=== PATIENT | male | born 1950 | race Caucasian/White ===

== ENCOUNTER 2017-02-26 04:57 | Inpatient (IN) ==
[2017-02-26] MEDS ORDERED: ASPIRIN 325 MG TABLET PO STA (05:29)
[2017-02-26] MEDS ORDERED: ENOXAPARIN 100 MG/ML SYRINGE SUBCUT STA (05:29)
[2017-02-26] MEDS ORDERED: MORPHINE 2 MG/1 ML SYRINGE IV STA (05:29)
[2017-02-26] MEDS ORDERED: ONDANSETRON 4 MG/2 ML VIAL IV STA (05:29)
[2017-02-26] MEDS ORDERED: NITROGLYCERIN 2% OINT 1 INCH/GM PACK TOP STA (05:29)
[2017-02-26] MEDS ORDERED: ALUM/MAG/SIMETH/LIDO VISC 1:1 30 ML BOTTLE PO STA (05:29)
[2017-02-26] MEDS ORDERED: ONDANSETRON 4 MG/2 ML VIAL ONE (05:45)
[2017-02-26] MEDS ORDERED: MORPHINE 2 MG/1 ML SYRINGE ONE (05:45)
[2017-02-26] MEDS ORDERED: ALUM/MAG/SIMETH/LIDO VISC 1:1 30 ML BOTTLE PO ONE (05:45)
[2017-02-26] MEDS ORDERED: NITROGLYCERIN 2% OINT 1 INCH/GM PACK TOP ONE (05:45)
[2017-02-26 05:49] LABS: Basophils # 0.1 10*3/uL (0.0-0.2); Basophils % 0.8 % (0.0-0.8); Eosinophils # 0.3 10*3/uL (0.0-0.87); Eosinophils % 4.3 % (0.00-10.9); Hematocrit 41.1 VOL% (42.0-52.0); Hemoglobin 14.6 GM/DL (14.0-18.0); Immature Granulocytes % 0.3 %; Immature Granulocytes Absolute 0.02 #; Lymphocytes # 1.8 10*3/uL (1.4-4.0); Lymphocytes % 23.4 % (21.2-54.2); Mean Corpuscular HGB Conc 35.5 GM/DL (32-36); Mean Corpuscular Hemoglobin 32 PG (27-34); Mean Corpuscular Volume 89.5 FL (87-102); Mean Platelet Volume 9.3 FL (9.6-12.0); Monocytes # 1.1 10*3/uL (0.11-0.8); Monocytes % 14.2 % (1.7-12.7); Neutrophils # 4.4 10*3/uL (1.4-7.4); Platelet Count 296 T/CUMM (130-400); Red Blood Count 4.59 MC/CUMM (3.8-5.5); Red Cell Distribution Width 12.9 % (9.3-17.3); White Blood Count 7.7 T/CUMM (4-12)
[2017-02-26 05:58] LABS: INR 0.9; PT Patient Result 9.9 SECS
[2017-02-26 06:31] LABS: Albumin 3.9 G/DL (3.4-5.0); Bilirubin,Total 0.8 MG/DL (0.2-1.0); Calcium 9.2 MG/DL (8.5-10.1); Magnesium 2.2 MG/DL (1.8-2.4); Osmolality,Calculated 282.4 MOS/KG (273-304); Potassium 3.7 MMOL/L (3.5-5.1); Total Protein 6.8 G/DL (6.4-8.3)
[2017-02-26] MEDS ORDERED: ENOXAPARIN 80 MG/0.8 ML SYRINGE SUBCUT ONE (09:49)
[2017-02-26] MEDS ORDERED: NITROGLYCERIN SL 0.4 MG TABLET SL PRN (12:40)
[2017-02-26] MEDS ORDERED: methylPREDNISolone SOD SUC 125 MG/2 ML VIAL IV ONE (13:52)
[2017-02-26] MEDS ORDERED: FAMOTIDINE 20 MG/2 ML VIAL IV ONE (13:54)
[2017-02-26] MEDS ORDERED: diphenhydrAMINE CAP 25 MG CAPSULE PO ONE (13:57)
[2017-02-26] MEDS ORDERED: DIAZEPAM 5 MG TABLET PO ONE (13:57)
[2017-02-26] MEDS ORDERED: MAGNESIUM SULF RIDER 2 GM in PREMIX 1 EACH IV PRN (13:57)
[2017-02-26] MEDS ORDERED: POTASSIUM CHLORIDE RIDER 10 MEQ in PREMIX 1 EACH IV PRN (13:57)
[2017-02-26] MEDS ORDERED: SODIUM CHLORIDE 0.9% 1,000 ML IV SCH (14:00)
[2017-02-26] MEDS ORDERED: LIDOCAINE 1% 20 ML VIAL ONE (14:33)
[2017-02-26] MEDS ORDERED: MEPERIDINE 25 MG/1 ML VIAL ONE (14:35)
[2017-02-26] MEDS ORDERED: MIDAZOLAM 2 MG/2 ML VIAL ONE (14:36)
[2017-02-26] MEDS: VENLAFAXINE 75 MG TABLET PO SCH ×2 (16:41→22:38)
[2017-02-26] MEDS: METOPROLOL TARTRATE 25 MG TABLET PO SCH ×2 (16:41→21:01)
[2017-02-26 18:05] LABS: Troponin I Only 0.084 NG/ML (0.00-0.045)
[2017-02-26] MEDS: predniSONE 50 MG TABLET PO SCH (18:36)
[2017-02-26] MEDS: ASPIRIN EC 81 MG TABLET PO SCH (20:59)
[2017-02-26] MEDS ORDERED: PRASUGREL 10 MG TABLET PO SCH (21:00)
[2017-02-26] MEDS: PITAVASTATIN 2 MG TABLET PO SCH (21:00)
[2017-02-26] MEDS: FAMOTIDINE 20 MG TABLET PO SCH (21:01)
[2017-02-26] MEDS: LISINOPRIL 2.5 MG TABLET PO SCH (21:01)
[2017-02-26] MEDS: PANTOPRAZOLE 40 MG TABLET PO SCH (21:01)
[2017-02-26] MEDS: MONTELUKAST 10 MG TABLET PO SCH (21:01)
[2017-02-26 22:14] LABS: Troponin I Only 0.054 NG/ML (0.00-0.045)
[2017-02-26] MEDS: FLUTICASONE 50 MCG NASAL SPRAY 16 GM BOTTLE BOTH NARES SCH (22:38)
[2017-02-27 05:20] LABS: Basophils % 0.1 % (0.0-0.8); Hematocrit 40.2 VOL% (42.0-52.0); Immature Granulocytes % 0.4 %; Immature Granulocytes Absolute 0.05 #; Lymphocytes # 0.9 10*3/uL (1.4-4.0); Lymphocytes % 6.6 % (21.2-54.2); Mean Corpuscular HGB Conc 34.8 GM/DL (32-36); Mean Corpuscular Hemoglobin 31 PG (27-34); Mean Corpuscular Volume 89.7 FL (87-102); Mean Platelet Volume 9.5 FL (9.6-12.0); Monocytes # 0.1 10*3/uL (0.11-0.8); Monocytes % 0.8 % (1.7-12.7); Neutrophils # 12.8 10*3/uL (1.4-7.4); Neutrophils % 92.1 % (38.7-73.9); Platelet Count 280 T/CUMM (130-400); Red Blood Count 4.48 MC/CUMM (3.8-5.5); Red Cell Distribution Width 12.4 % (9.3-17.3); White Blood Count 13.9 T/CUMM (4-12)
[2017-02-27 05:45] LABS: Band Neutrophils 1 % (0-10); Lymphocytes 8 % (20-55); Segmented Neutrophils 90 % (50-85); Total Cells Counted 100
[2017-02-27 05:48] LABS: Hypochromasia 1+; Platelet Estimate Normal
[2017-02-27 05:58] LABS: Calcium 8.6 MG/DL (8.5-10.1); Magnesium 2.3 MG/DL (1.8-2.4); Osmolality,Calculated 283.5 MOS/KG (273-304); Potassium 4.6 MMOL/L (3.5-5.1)
[2017-02-27 06:00] LABS: Calcium 8.9 MG/DL (8.5-10.1); Osmolality,Calculated 283.5 MOS/KG (273-304); Potassium 4.5 MMOL/L (3.5-5.1)
[2017-02-27] MEDS ORDERED: DEXTROSE 50% 25 GM/50 ML VIAL IV PRN (06:23)
[2017-02-27] MEDS ORDERED: GLUCAGON 1 MG VIAL IM PRN (06:23)
[2017-02-27] MEDS ORDERED: SODIUM CHLORIDE 0.9% 1,000 ML IV SCH (06:30)
[2017-02-27] MEDS ORDERED: CEFUROXIME INJ 1,500 MG in SYRINGE 1 EACH IV ONE (06:31)
[2017-02-27 06:45] LABS: ABG Base Excess 1.2 MMOL/L (-2.5-2.5); ABG HCO3 25.5 MMOL/L (20-26); ABG Oxygen Saturation 96.5 % (95-100); ABG PCO2 39.2 MM HG (35-48); ABG PH 7.423 (7.35-7.45); ABG TCO2 22.2 MMOL/L (23-27)
[2017-02-27 08:09] LABS: Albumin 3.5 G/DL (3.4-5.0); Bilirubin,Total 0.4 MG/DL (0.2-1.0); Calcium 8.6 MG/DL (8.5-10.1); Osmolality,Calculated 279.8 MOS/KG (273-304); Potassium 4.6 MMOL/L (3.5-5.1); Total Protein 6.6 G/DL (6.4-8.3)
[2017-02-27 08:18] LABS: Hematocrit 38.8 VOL% (42.0-52.0); Hemoglobin 13.6 GM/DL (14.0-18.0); Immature Granulocytes % 0.4 %; Immature Granulocytes Absolute 0.06 #; Lymphocytes # 0.9 10*3/uL (1.4-4.0); Lymphocytes % 5.9 % (21.2-54.2); Mean Corpuscular HGB Conc 35.1 GM/DL (32-36); Mean Corpuscular Hemoglobin 31 PG (27-34); Mean Corpuscular Volume 89.2 FL (87-102); Mean Platelet Volume 9.3 FL (9.6-12.0); Monocytes # 0.3 10*3/uL (0.11-0.8); Monocytes % 2.1 % (1.7-12.7); Neutrophils # 14.1 10*3/uL (1.4-7.4); Neutrophils % 91.6 % (38.7-73.9); Platelet Count 269 T/CUMM (130-400); Red Blood Count 4.35 MC/CUMM (3.8-5.5); Red Cell Distribution Width 12.4 % (9.3-17.3); White Blood Count 15.4 T/CUMM (4-12)
[2017-02-27] MEDS ORDERED: CHLORHEXIDINE 4% SOLN 118 ML BOTTLE TOP SCH (09:00)
[2017-02-27] MEDS: VENLAFAXINE 75 MG TABLET PO SCH ×2 (09:18→22:08)
[2017-02-27] MEDS: predniSONE 50 MG TABLET PO SCH (09:18)
[2017-02-27] MEDS: FAMOTIDINE 20 MG TABLET PO SCH ×2 (09:19→22:09)
[2017-02-27] MEDS: CHLORHEXIDINE 0.12% ORAL RINSE 60 ML BOTTLE SWISH/SPIT SCH ×2 (09:19→22:21)
[2017-02-27] MEDS: METOPROLOL TARTRATE 25 MG TABLET PO SCH ×2 (09:19→22:09)
[2017-02-27] MEDS: FLUTICASONE 50 MCG NASAL SPRAY 16 GM BOTTLE BOTH NARES SCH ×2 (09:20→22:22)
[2017-02-27 09:27] LABS: Band Neutrophils 1 % (0-10); Hypochromasia Slight; Lymphocytes 3 % (20-55); Microcytosis 1+; Platelet Estimate Adequate; Segmented Neutrophils 94 % (50-85); Total Cells Counted 100
[2017-02-27] MEDS: CLORAZEPATE 3.75 MG TABLET PO SCH ×3 (13:16→22:13)
[2017-02-27] MEDS: CHLORHEXIDINE 4% SOLN 118 ML BOTTLE TOP SCH ×2 (15:38→22:21)
[2017-02-27] MEDS ORDERED: ENOXAPARIN 40 MG/0.4 ML SYRINGE SUBCUT ONE (18:48)
[2017-02-27] MEDS: ASPIRIN EC 81 MG TABLET PO SCH (22:08)
[2017-02-27] MEDS: PITAVASTATIN 2 MG TABLET PO SCH (22:08)
[2017-02-27] MEDS: LISINOPRIL 2.5 MG TABLET PO SCH (22:08)
[2017-02-27] MEDS: MONTELUKAST 10 MG TABLET PO SCH (22:09)
[2017-02-27] MEDS: PANTOPRAZOLE 40 MG TABLET PO SCH (22:09)
[2017-02-28] MEDS ORDERED: PAPAVERINE 60 MG/2 ML VIAL ONE ×3 (04:35→18:22)
[2017-02-28] MEDS ORDERED: VANCOMYCIN 1,000 MG VIAL ONE ×2 (04:35→19:01)
[2017-02-28] MEDS ORDERED: CEFUROXIME INJ 1,500 MG in SYRINGE 1 EACH IV ONE (05:00)
[2017-02-28] MEDS ORDERED: PANTOPRAZOLE 40 MG TABLET PO ONE (05:30)
[2017-02-28] MEDS ORDERED: LORazepam 1 MG TABLET PO ONE (05:30)
[2017-02-28] MEDS ORDERED: HEPARIN/NACL 0.9% 2 UNITS/ML 500 ML IV ONE (05:33)
[2017-02-28] MEDS ORDERED: PHENYLEPHRINE DRIP 20 MG/250 ML PREMIX IV ONE (05:33)
[2017-02-28] MEDS ORDERED: CALCIUM CHLORIDE 1,000 MG/10 ML VIAL IV ONE (05:33)
[2017-02-28] MEDS ORDERED: SUFentanil 250 MCG/5 ML AMP ONE ×2 (05:33→21:17)
[2017-02-28] MEDS ORDERED: NITROGLYCERIN DRIP 50 MG/250 ML BOTTLE IV ONE (05:34)
[2017-02-28] MEDS ORDERED: ePHEDrine 50 MG/ML AMP ONE (05:34)
[2017-02-28] MEDS ORDERED: MIDAZOLAM 10 MG/2 ML VIAL ONE (05:34)
[2017-02-28] MEDS ORDERED: VECURONIUM 10 MG VIAL IV ONE ×2 (05:34→21:17)
[2017-02-28] MEDS ORDERED: TRANEXAMIC ACID 1,000 MG/10 ML VIAL IV ONE (05:34)
[2017-02-28] MEDS ORDERED: ETOMIDATE 20 MG/10 ML VIAL IV ONE (05:35)
[2017-02-28 05:53] LABS: Basophils % 0.1 % (0.0-0.8); Hematocrit 37.6 VOL% (42.0-52.0); Hemoglobin 13.2 GM/DL (14.0-18.0); Immature Granulocytes % 0.5 %; Immature Granulocytes Absolute 0.09 #; Lymphocytes # 1.5 10*3/uL (1.4-4.0); Mean Corpuscular HGB Conc 35.1 GM/DL (32-36); Mean Corpuscular Hemoglobin 31 PG (27-34); Mean Corpuscular Volume 88.7 FL (87-102); Mean Platelet Volume 9.6 FL (9.6-12.0); Monocytes # 1.3 10*3/uL (0.11-0.8); Monocytes % 7.3 % (1.7-12.7); Neutrophils # 14.1 10*3/uL (1.4-7.4); Neutrophils % 83.1 % (38.7-73.9); Platelet Count 259 T/CUMM (130-400); Red Blood Count 4.24 MC/CUMM (3.8-5.5); Red Cell Distribution Width 12.6 % (9.3-17.3)
[2017-02-28] MEDS: METOPROLOL TARTRATE 25 MG TABLET PO SCH ×2 (06:05→16:13)
[2017-02-28] MEDS: CHLORHEXIDINE 4% SOLN 118 ML BOTTLE TOP SCH ×2 (06:07→16:13)
[2017-02-28 06:15] LABS: Calcium 8.5 MG/DL (8.5-10.1); Osmolality,Calculated 284.5 MOS/KG (273-304); Potassium 4.2 MMOL/L (3.5-5.1)
[2017-02-28] MEDS ORDERED: SODIUM CHLORIDE 0.9% 1,000 ML IV SCH (06:30)
[2017-02-28 07:41] LABS: ABG Base Excess 0.8 MMOL/L (-2.5-2.5); ABG HCO3 25.2 MMOL/L (20-26); ABG PCO2 36.4 MM HG (35-48); ABG PH 7.439 (7.35-7.45); ABG TCO2 21.7 MMOL/L (23-27); Glucose Heart Surgery 116 MG/DL (74-106); Hematocrit Heart Surgery 37.5 PERCENT (42-52); Hemoglobin Heart Surgery 12.2 G/DL (14.0-18.0); Ionized Calcium Arterial 1.14 MMOL/L (1.21-1.46); PCO2 Patient Temp Arterial 36.4 MMHG; PH Patient Temp Arterial 7.439; Patient Temperature 37 CELCIUS; Potassium Heart/CVR 3.8 MMOL/L (3.5-5.1); Sodium Heart/CVR 139 MMOL/L (135-145)
[2017-02-28 07:59] LABS: Apearance,Urine CLEAR (Clear); Bacteria,Urine Occasional /HPF (Few); Bilirubin,Urine Negative (Negative); Blood, Urine Small mg/dL (Negative); Glucose,Urine (UA) Negative (Negative); Ketones,Urine Negative (Negative); Mucus,Urine Occasional /LPF (Occasional); Nitrite,Urine Negative (Negative); Protein,Urine Negative; RBC,Urine <1 /HPF (0-4); Urine Color Yellow (Yellow); Urine Specific Gravity 1.012 (1.001-1.035); Urine Urobilinogen < 2.0 EU/DL (0.2-1.0); WBC,Urine 2 /HPF (0-6)
[2017-02-28 09:11] LABS: Hemoglobin Heart Surgery 8.7 G/DL (14.0-18.0); PCO2 Patient Temp Venous 35.7 MM HG; PH Patient Temp Venous 7.486; PO2 Patient Temp Venous 33.1 MM HG; Potassium Heart/CVR 4.2 MMOL/L (3.5-5.1); VBG Base Excess 2.8 MEQ/L (0-4); VBG HCO3 26.9 MEQ/L (24-28); VBG Oxygen Saturation 78.5 %; VBG PH 7.456; VBG PO2 38.1 MMHG (17-40)
[2017-02-28 09:42] LABS: Hematocrit Heart Surgery 26.7 PERCENT (42-52); Hemoglobin Heart Surgery 8.6 G/DL (14.0-18.0); PCO2 Patient Temp Venous 38.3 MM HG; PH Patient Temp Venous 7.461; PO2 Patient Temp Venous 48.5 MM HG; Potassium Heart/CVR 4.3 MMOL/L (3.5-5.1); VBG Base Excess 3.4 MEQ/L (0-4); VBG HCO3 27.3 MEQ/L (24-28); VBG Oxygen Saturation 85.1 %; VBG PCO2 38.3 MMHG (41-51); VBG PH 7.461; VBG PO2 48.5 MMHG (17-40)
[2017-02-28] MEDS ORDERED: CALCIUM CHLORIDE 1,000 MG/10 ML SYRINGE IV ONE (09:50)
[2017-02-28] MEDS ORDERED: NITROPRUSSIDE 50 MG/2 ML VIAL ONE (09:50)
[2017-02-28] MEDS ORDERED: POTASSIUM CHLORIDE RIDER 100 ML IV ONE (09:50)
[2017-02-28] MEDS ORDERED: PHENYLEPHRINE DRIP 40 MG/250 ML PREMIX IV ONE (09:50)
[2017-02-28] MEDS ORDERED: PROTAMINE SULFATE 250 MG/25 ML VIAL IV ONE (10:22)
[2017-02-28] MEDS ORDERED: ALBUMIN 25% 25 GM/100 ML VIAL IV ONE (10:22)
[2017-02-28] MEDS ORDERED: DEXTROSE 5% KCL 20 MEQ 20 MEQ/1,000 ML BAG IV ONE (10:22)
[2017-02-28] MEDS ORDERED: SODIUM BICARBONATE 50 MEQ/50 ML SYRINGE IV ONE (10:22)
[2017-02-28] MEDS ORDERED: MANNITOL 12.5 GM/50 ML VIAL IV ONE (10:23)
[2017-02-28] MEDS ORDERED: FUROSEMIDE 20 MG/2 ML VIAL ONE (10:23)
[2017-02-28] MEDS ORDERED: methylPREDNISolone SOD SUC 1,000 MG/8 ML VIAL ONE (10:23)
[2017-02-28] MEDS ORDERED: HEPARIN 10,000 UNIT/10 ML VIAL ONE (10:23)
[2017-02-28] MEDS ORDERED: MAGNESIUM SULFATE 1 GM/2 ML VIAL ONE (10:23)
[2017-02-28] MEDS ORDERED: PROTAMINE SULFATE 50 MG/5 ML VIAL IV ONE ×5 (10:23→23:30)
[2017-02-28 10:38] LABS: ABG Base Excess 2.6 MMOL/L (-2.5-2.5); ABG HCO3 26.8 MMOL/L (20-26); ABG PCO2 33.7 MM HG (35-48); ABG PH 7.491 (7.35-7.45); ABG TCO2 23.9 MMOL/L (23-27); Glucose Heart Surgery 247 MG/DL (74-106); Hematocrit Heart Surgery 25.7 PERCENT (42-52); Hemoglobin Heart Surgery 8.3 G/DL (14.0-18.0); PCO2 Patient Temp Arterial 33.7 MMHG; PH Patient Temp Arterial 7.491; Patient Temperature 37 CELCIUS; Potassium Heart/CVR 3.9 MMOL/L (3.5-5.1); Sodium Heart/CVR 133 MMOL/L (135-145)
[2017-02-28] MEDS: SODIUM CHLORIDE 0.45% 1,000 ML IV SCH ×2 (11:15)
[2017-02-28] MEDS: PHENYLEPHRINE DRIP 40 MG/250 ML PREMIX IV PRN (11:15)
[2017-02-28] MEDS ORDERED: SODIUM CHLORIDE 0.9% 100 ML IV ONE (11:30)
[2017-02-28] MEDS ORDERED: SEVOFLURANE 1 UNIT/15 MINUTE INH ONE ×2 (11:30→21:20)
[2017-02-28] MEDS ORDERED: SODIUM CHLORIDE 0.9% 1,000 ML IV ONE ×2 (11:30→21:17)
[2017-02-28] MEDS ORDERED: LACTATED RINGERS 1,000 ML IV ONE (11:30)
[2017-02-28] MEDS ORDERED: LACTATED RINGERS 250 ML IV PRN (11:37)
[2017-02-28] MEDS ORDERED: CALCIUM CHLORIDE 1,000 MG/10 ML SYRINGE IV PRN (11:37)
[2017-02-28] MEDS ORDERED: INSULIN REGULAR 100 UNIT/ML IV PRN (11:37)
[2017-02-28] MEDS ORDERED: NITROPRUSSIDE 100 MG in DEXTROSE 5% 250 ML IV PRN (11:37)
[2017-02-28] MEDS ORDERED: MAGNESIUM SULF RIDER 2 GM in PREMIX 1 EACH IV PRN (11:37)
[2017-02-28] MEDS ORDERED: VECURONIUM 10 MG VIAL IV PRN ×2 (11:37)
[2017-02-28] MEDS ORDERED: INSULIN REGULAR 100 UNIT/ML IV ONE (11:37)
[2017-02-28] MEDS ORDERED: DEXTROSE 50% 25 GM/50 ML VIAL IV PRN ×2 (11:37)
[2017-02-28] MEDS ORDERED: KETOROLAC 30 MG/1 ML VIAL IV SCH (11:37)
[2017-02-28] MEDS ORDERED: MAGNESIUM SULF RIDER 4 GM in PREMIX 1 EACH IV PRN (11:37)
[2017-02-28] MEDS ORDERED: ONDANSETRON 4 MG/2 ML VIAL IV PRN (11:37)
[2017-02-28] MEDS ORDERED: ACETAMINOPHEN 650 MG SUPP RECTAL PRN (11:37)
[2017-02-28] MEDS ORDERED: POTASSIUM CHLORIDE RIDER 10 MEQ in PREMIX 1 EACH IV PRN (11:37)
[2017-02-28] MEDS ORDERED: POTASSIUM CHLORIDE RIDER 20 MEQ in PREMIX 1 EACH IV PRN (11:37)
[2017-02-28] MEDS ORDERED: MIDAZOLAM 2 MG/2 ML VIAL IV PRN (11:37)
[2017-02-28] MEDS ORDERED: INSULIN REGULAR DRIP 100 ML IV SCH (11:37)
[2017-02-28 11:41] LABS: ABG Base Excess 2.9 MMOL/L (-2.5-2.5); ABG Oxygen Saturation 99.6 % (95-100); ABG PCO2 39.1 MM HG (35-48); ABG PH 7.448 (7.35-7.45); ABG TCO2 25.1 MMOL/L (23-27); Glucose Heart Surgery 210 MG/DL (74-106); Hematocrit Heart Surgery 25.5 PERCENT (42-52); Hemoglobin Heart Surgery 8.2 G/DL (14.0-18.0); Potassium Heart/CVR 4.5 MMOL/L (3.5-5.1)
[2017-02-28 11:46] LABS: Basophils % 0.1 % (0.0-0.8); Eosinophils % 0.1 % (0.00-10.9); Hematocrit 23.6 VOL% (42.0-52.0); Immature Granulocytes Absolute 0.17 #; Lymphocytes # 0.9 10*3/uL (1.4-4.0); Lymphocytes % 5.3 % (21.2-54.2); Mean Corpuscular HGB Conc 35.2 GM/DL (32-36); Mean Corpuscular Hemoglobin 31 PG (27-34); Mean Corpuscular Volume 89.1 FL (87-102); Mean Platelet Volume 9.7 FL (9.6-12.0); Monocytes # 0.8 10*3/uL (0.11-0.8); Monocytes % 4.7 % (1.7-12.7); Neutrophils # 15.4 10*3/uL (1.4-7.4); Neutrophils % 88.8 % (38.7-73.9); Red Cell Distribution Width 12.6 % (9.3-17.3); White Blood Count 17.3 T/CUMM (4-12)
[2017-02-28 11:54] LABS: Hemoglobin 8.3 GM/DL (14.0-18.0); Red Blood Count 2.65 MC/CUMM (3.8-5.5)
[2017-02-28 11:55] LABS: Platelet Count 215 T/CUMM (130-400)
[2017-02-28 11:59] LABS: INR 1.2; PT Patient Result 12.9 SECS; Partial Thromboplastin Time 26.6 SECS (0-40)
[2017-02-28] MEDS: ALBUMIN 5% 12.5 GM in PREMIX 1 EACH IV PRN ×3 (12:00→15:30)
[2017-02-28] MEDS: LACTATED RINGERS 1,000 ML IV PRN ×5 (12:00→23:00)
[2017-02-28 12:24] LABS: CKMB % 7.5 %
[2017-02-28 12:28] LABS: Troponin I Only 6.16 NG/ML (0.00-0.045)
[2017-02-28 12:53] LABS: Bilirubin,Total 0.8 MG/DL (0.2-1.0); Calcium 9.3 MG/DL (8.5-10.1); Magnesium 2.6 MG/DL (1.8-2.4); Osmolality,Calculated 284.8 MOS/KG (273-304); Potassium 4.7 MMOL/L (3.5-5.1)
[2017-02-28] MEDS: MIDAZOLAM 10 MG/2 ML VIAL IV PRN ×3 (13:00→18:00)
[2017-02-28 13:58] LABS: ABG Base Excess 1.6 MMOL/L (-2.5-2.5); ABG HCO3 25.8 MMOL/L (20-26); ABG Oxygen Saturation 98.1 % (95-100); ABG PCO2 41.7 MM HG (35-48); ABG PO2 97.1 MM HG (80-95); ABG TCO2 23.9 MMOL/L (23-27); Glucose Heart Surgery 169 MG/DL (74-106); Hematocrit Heart Surgery 31.5 PERCENT (42-52); Hemoglobin Heart Surgery 10.2 G/DL (14.0-18.0)
[2017-02-28 15:48] LABS: ABG Base Excess 3.9 MMOL/L (-2.5-2.5); ABG PCO2 40.8 MM HG (35-48); ABG PH 7.448 (7.35-7.45); ABG TCO2 25.9 MMOL/L (23-27); Glucose Heart Surgery 127 MG/DL (74-106); Hematocrit Heart Surgery 28.5 PERCENT (42-52); Hemoglobin Heart Surgery 9.2 G/DL (14.0-18.0); Potassium Heart/CVR 4.3 MMOL/L (3.5-5.1)
[2017-02-28] MEDS: CLORAZEPATE 3.75 MG TABLET PO SCH (16:12)
[2017-02-28] MEDS: FLUTICASONE 50 MCG NASAL SPRAY 16 GM BOTTLE BOTH NARES SCH (16:13)
[2017-02-28] MEDS: FAMOTIDINE 20 MG TABLET PO SCH (16:13)
[2017-02-28] MEDS: CHLORHEXIDINE 0.12% ORAL RINSE 60 ML BOTTLE SWISH/SPIT SCH (16:13)
[2017-02-28] MEDS: VENLAFAXINE 75 MG TABLET PO SCH (16:14)
[2017-02-28 17:52] LABS: ABG Base Excess 2.2 MMOL/L (-2.5-2.5); ABG HCO3 26.4 MMOL/L (20-26); ABG Oxygen Saturation 96.6 % (95-100); ABG PCO2 40.6 MM HG (35-48); ABG PH 7.426 (7.35-7.45); ABG PO2 78.5 MM HG (80-95); ABG TCO2 24.7 MMOL/L (23-27); Glucose Heart Surgery 120 MG/DL (74-106); Hematocrit Heart Surgery 26.3 PERCENT (42-52); Hemoglobin Heart Surgery 8.5 G/DL (14.0-18.0); Potassium Heart/CVR 4.3 MMOL/L (3.5-5.1)
[2017-02-28] MEDS ORDERED: VANCOMYCIN INJ 1,000 MG in SODIUM CHLORIDE 0.9% 250 ML IV ONE (20:33)
[2017-02-28 20:41] LABS: Hematocrit 22.7 VOL% (42.0-52.0); Immature Granulocytes % 0.4 %; Immature Granulocytes Absolute 0.05 #; Lymphocytes # 0.3 10*3/uL (1.4-4.0); Mean Corpuscular HGB Conc 35.2 GM/DL (32-36); Mean Corpuscular Hemoglobin 31 PG (27-34); Mean Corpuscular Volume 87.3 FL (87-102); Mean Platelet Volume 9.9 FL (9.6-12.0); Monocytes # 0.8 10*3/uL (0.11-0.8); Monocytes % 6.6 % (1.7-12.7); Neutrophils # 10.2 10*3/uL (1.4-7.4); Platelet Count 117 T/CUMM (130-400); Red Cell Distribution Width 13.2 % (9.3-17.3); White Blood Count 11.3 T/CUMM (4-12)
[2017-02-28 20:42] LABS: ABG HCO3 25.4 MMOL/L (20-26); ABG Oxygen Saturation 99.2 % (95-100); ABG PCO2 38.7 MM HG (35-48); ABG PH 7.425 (7.35-7.45); ABG TCO2 23.7 MMOL/L (23-27); Glucose Heart Surgery 160 MG/DL (74-106); Hematocrit Heart Surgery 24.9 PERCENT (42-52); Potassium Heart/CVR 4.1 MMOL/L (3.5-5.1)
[2017-02-28 20:51] LABS: INR 1.2; PT Patient Result 12.7 SECS
[2017-02-28 21:11] LABS: Albumin 2.8 G/DL (3.4-5.0); Bilirubin,Direct 0.42 MG/DL (0.0-0.20); Bilirubin,Total 1.3 MG/DL (0.2-1.0); CKMB % 4.6 %; Osmolality,Calculated 290.3 MOS/KG (273-304); Potassium 4.3 MMOL/L (3.5-5.1); Total Protein 4.1 G/DL (6.4-8.3)
[2017-02-28 21:14] LABS: Troponin I Only 6.07 NG/ML (0.00-0.045)
[2017-02-28] MEDS ORDERED: MIDAZOLAM 2 MG/2 ML VIAL ONE (21:16)
[2017-02-28] MEDS ORDERED: SODIUM CHLORIDE 0.9% 250 ML IV ONE (21:17)
[2017-02-28] MEDS ORDERED: DESMOPRESSIN INJ 20 MCG in SODIUM CHLORIDE 0.9% 50 ML IV ONE (21:30)
[2017-02-28] MEDS: KETOROLAC 30 MG/1 ML VIAL IV SCH (21:43)
[2017-02-28] MEDS: CEFUROXIME INJ 1,500 MG in SYRINGE 1 EACH IV SCH ×2 (21:47→23:17)
[2017-02-28 22:17] LABS: Lymphocytes 2 % (20-55); Segmented Neutrophils 95 % (50-85); Total Cells Counted 100
[2017-02-28 22:18] LABS: Macrocytosis Slight; Platelet Estimate Decreased; Polychromasia Few
[2017-02-28 22:20] LABS: ABG Base Excess -0.3 MMOL/L (-2.5-2.5); ABG HCO3 24.2 MMOL/L (20-26); ABG Oxygen Saturation 99.3 % (95-100); ABG PH 7.351 (7.35-7.45); ABG TCO2 23.5 MMOL/L (23-27); Glucose Heart Surgery 196 MG/DL (74-106); Hematocrit Heart Surgery 29.2 PERCENT (42-52); Hemoglobin Heart Surgery 9.4 G/DL (14.0-18.0); Potassium Heart/CVR 4.6 MMOL/L (3.5-5.1)
[2017-02-28 23:41] LABS: ABG Base Excess 1.6 MMOL/L (-2.5-2.5); ABG HCO3 25.8 MMOL/L (20-26); ABG Oxygen Saturation 98.4 % (95-100); ABG PCO2 41.2 MM HG (35-48); ABG PH 7.412 (7.35-7.45); ABG PO2 97.5 MM HG (80-95); ABG TCO2 24.3 MMOL/L (23-27); Glucose Heart Surgery 189 MG/DL (74-106); Hematocrit Heart Surgery 26.4 PERCENT (42-52); Hemoglobin Heart Surgery 8.5 G/DL (14.0-18.0); Potassium Heart/CVR 4.3 MMOL/L (3.5-5.1)
[2017-03-01] MEDS: CHLORHEXIDINE 0.12% ORAL RINSE 60 ML BOTTLE SWISH/SPIT SCH ×3 (00:35→21:48)
[2017-03-01] MEDS: MORPHINE 2 MG/1 ML SYRINGE IV PRN ×3 (00:35→23:06)
[2017-03-01] MEDS: KETOROLAC 30 MG/1 ML VIAL IV SCH ×5 (01:22→21:47)
[2017-03-01] MEDS: MORPHINE 10 MG/1 ML VIAL IV PRN ×2 (01:29→02:59)
[2017-03-01] MEDS ORDERED: FUROSEMIDE 40 MG/4 ML VIAL IV ONE ×2 (03:00→14:57)
[2017-03-01] MEDS: ALBUMIN 5% 12.5 GM in PREMIX 1 EACH IV PRN ×3 (03:49→17:13)
[2017-03-01 04:24] LABS: ABG Base Excess 1.1 MMOL/L (-2.5-2.5); ABG HCO3 25.4 MMOL/L (20-26); ABG Oxygen Saturation 97.2 % (95-100); ABG PCO2 47.7 MM HG (35-48); ABG PH 7.361 (7.35-7.45); ABG TCO2 24.5 MMOL/L (23-27); Glucose Heart Surgery 144 MG/DL (74-106); Hematocrit Heart Surgery 32.3 PERCENT (42-52); Hemoglobin Heart Surgery 10.4 G/DL (14.0-18.0)
[2017-03-01 04:28] LABS: Hemoglobin 10.5 GM/DL (14.0-18.0); Immature Granulocytes % 0.4 %; Immature Granulocytes Absolute 0.04 #; Lymphocytes # 0.7 10*3/uL (1.4-4.0); Lymphocytes % 6.4 % (21.2-54.2); Mean Corpuscular HGB Conc 36.2 GM/DL (32-36); Mean Corpuscular Hemoglobin 32 PG (27-34); Mean Corpuscular Volume 87.1 FL (87-102); Mean Platelet Volume 10.5 FL (9.6-12.0); Monocytes # 1.3 10*3/uL (0.11-0.8); Neutrophils # 8.5 10*3/uL (1.4-7.4); Neutrophils % 81.2 % (38.7-73.9); Platelet Count 115 T/CUMM (130-400); Red Blood Count 3.33 MC/CUMM (3.8-5.5); Red Cell Distribution Width 13.4 % (9.3-17.3); White Blood Count 10.4 T/CUMM (4-12)
[2017-03-01 04:51] LABS: INR 1.1; PT Patient Result 11.6 SECS; Partial Thromboplastin Time 27.1 SECS (0-40)
[2017-03-01 05:08] LABS: Albumin 3.1 G/DL (3.4-5.0); Bilirubin,Direct 0.3 MG/DL (0.0-0.20); Bilirubin,Total 1.4 MG/DL (0.2-1.0); Calcium 7.3 MG/DL (8.5-10.1); Osmolality,Calculated 288.3 MOS/KG (273-304); Potassium 4.1 MMOL/L (3.5-5.1); Total Protein 4.8 G/DL (6.4-8.3)
[2017-03-01 05:12] LABS: CKMB % 3.1 %
[2017-03-01 05:18] LABS: Troponin I Only 5.13 NG/ML (0.00-0.045)
[2017-03-01] MEDS: VANCOMYCIN INJ 1,000 MG in SODIUM CHLORIDE 0.9% 250 ML IV SCH ×2 (06:39→18:25)
[2017-03-01 10:02] LABS: ABG Base Excess 1.8 MMOL/L (-2.5-2.5); ABG Oxygen Saturation 96.2 % (95-100); ABG PCO2 53.5 MM HG (35-48); ABG PH 7.336 (7.35-7.45); ABG PO2 83.8 MM HG (80-95); ABG TCO2 26.1 MMOL/L (23-27); Glucose Heart Surgery 144 MG/DL (74-106); Hematocrit Heart Surgery 31.1 PERCENT (42-52); Potassium Heart/CVR 4.4 MMOL/L (3.5-5.1)
[2017-03-01 14:48] LABS: ABG Base Excess 3.1 MMOL/L (-2.5-2.5); ABG HCO3 27.1 MMOL/L (20-26); ABG Oxygen Saturation 95.1 % (95-100); ABG PCO2 49.3 MM HG (35-48); ABG PH 7.377 (7.35-7.45); ABG TCO2 26.5 MMOL/L (23-27); Glucose Heart Surgery 136 MG/DL (74-106); Hematocrit Heart Surgery 30.4 PERCENT (42-52); Hemoglobin Heart Surgery 9.8 G/DL (14.0-18.0); Potassium Heart/CVR 4.2 MMOL/L (3.5-5.1)
[2017-03-01] MEDS ORDERED: AMIODARONE 150 MG/3 ML VIAL ONE (15:34)
[2017-03-01] MEDS ORDERED: AMIODARONE 450 MG/9 ML VIAL IV ONE (15:34)
[2017-03-01] MEDS ORDERED: AMIODARONE INJ 150 MG in DEXTROSE 5% 100 ML IV ONE (15:40)
[2017-03-01] MEDS ORDERED: AMIODARONE INJ 450 MG in DEXTROSE 5% 241 ML IV SCH ×2 (15:50→22:00)
[2017-03-01] MEDS ORDERED: ALBUTEROL/IPRATROPIUM 3 ML NEB RESP TX ONE (16:26)
[2017-03-01] MEDS: SODIUM CHLORIDE 0.45% 1,000 ML IV SCH ×3 (17:06→17:10)
[2017-03-01] MEDS: PHENYLEPHRINE DRIP 40 MG/250 ML PREMIX IV PRN (17:24)
[2017-03-01] MEDS: ALBUTEROL/IPRATROPIUM 3 ML NEB RESP TX SCH (19:40)
[2017-03-01] MEDS ORDERED: KETOROLAC 15 MG/1 ML VIAL ONE (21:41)
[2017-03-01] MEDS: MONTELUKAST 10 MG TABLET PO SCH (21:48)
[2017-03-01] MEDS: ASPIRIN EC 81 MG TABLET PO SCH (21:48)
[2017-03-01] MEDS: VENLAFAXINE 75 MG TABLET PO SCH (21:48)
[2017-03-01] MEDS: FLUTICASONE 50 MCG NASAL SPRAY 16 GM BOTTLE BOTH NARES SCH (21:48)
[2017-03-01] MEDS: PITAVASTATIN 2 MG TABLET PO SCH (21:48)
[2017-03-01] MEDS: METOPROLOL TARTRATE 25 MG TABLET PO SCH (22:33)
[2017-03-02] MEDS: ALBUTEROL/IPRATROPIUM 3 ML NEB RESP TX SCH ×4 (00:36→20:19)
[2017-03-02] MEDS: MORPHINE 2 MG/1 ML SYRINGE IV PRN ×4 (01:25→21:36)
[2017-03-02] MEDS: MORPHINE 10 MG/1 ML VIAL IV PRN ×2 (04:12→16:02)
[2017-03-02 04:25] LABS: Basophils % 0.1 % (0.0-0.8); Hematocrit 25.4 VOL% (42.0-52.0); Hemoglobin 8.8 GM/DL (14.0-18.0); Immature Granulocytes % 0.4 %; Immature Granulocytes Absolute 0.06 #; Lymphocytes # 1.1 10*3/uL (1.4-4.0); Lymphocytes % 7.8 % (21.2-54.2); Mean Corpuscular HGB Conc 34.6 GM/DL (32-36); Mean Corpuscular Hemoglobin 31 PG (27-34); Mean Corpuscular Volume 89.8 FL (87-102); Mean Platelet Volume 10.8 FL (9.6-12.0); Monocytes # 1.6 10*3/uL (0.11-0.8); Monocytes % 11.2 % (1.7-12.7); NRBC # 0.02 10*3/uL; Neutrophils # 11.1 10*3/uL (1.4-7.4); Neutrophils % 80.5 % (38.7-73.9); Red Blood Count 2.83 MC/CUMM (3.8-5.5); Red Cell Distribution Width 13.5 % (9.3-17.3); White Blood Count 13.8 T/CUMM (4-12)
[2017-03-02 04:27] LABS: ABG Base Excess 1.5 MMOL/L (-2.5-2.5); ABG HCO3 27.3 MMOL/L (20-26); ABG Oxygen Saturation 93.9 % (95-100); ABG PH 7.364 (7.35-7.45); ABG PO2 75.5 MM HG (80-95); ABG TCO2 28.8 MMOL/L (23-27)
[2017-03-02 04:34] LABS: Platelet Count 106 T/CUMM (130-400)
[2017-03-02 04:48] LABS: Albumin 3.1 G/DL (3.4-5.0); Bilirubin,Direct 0.26 MG/DL (0.0-0.20); Bilirubin,Total 1.3 MG/DL (0.2-1.0); Magnesium 2.2 MG/DL (1.8-2.4); Osmolality,Calculated 292.3 MOS/KG (273-304); Potassium 4.2 MMOL/L (3.5-5.1); Total Protein 4.9 G/DL (6.4-8.3)
[2017-03-02] MEDS: VANCOMYCIN INJ 1,000 MG in SODIUM CHLORIDE 0.9% 250 ML IV SCH ×2 (06:23→19:30)
[2017-03-02 06:47] LABS: Giant Platelets Few; Hypochromasia 1+; Ovalocytes Slight; Platelet Estimate Decreased
[2017-03-02] MEDS: VENLAFAXINE 75 MG TABLET PO SCH ×2 (09:02→21:37)
[2017-03-02] MEDS: METOPROLOL TARTRATE 25 MG TABLET PO SCH ×2 (09:02→21:37)
[2017-03-02] MEDS: CHLORHEXIDINE 0.12% ORAL RINSE 60 ML BOTTLE SWISH/SPIT SCH ×2 (09:05→21:41)
[2017-03-02] MEDS ORDERED: FUROSEMIDE 40 MG/4 ML VIAL IV ONE (09:11)
[2017-03-02] MEDS: FLUTICASONE 50 MCG NASAL SPRAY 16 GM BOTTLE BOTH NARES SCH ×2 (09:15→21:42)
[2017-03-02] MEDS: AMIODARONE 200 MG TABLET PO SCH ×2 (11:04→21:37)
[2017-03-02] MEDS ORDERED: ACETAMINOPHEN 500 MG TABLET ONE (14:15)
[2017-03-02] MEDS: SODIUM CHLORIDE 0.45% 1,000 ML IV SCH (18:57)
[2017-03-02] MEDS: PITAVASTATIN 2 MG TABLET PO SCH (21:37)
[2017-03-02] MEDS: MONTELUKAST 10 MG TABLET PO SCH (21:37)
[2017-03-02] MEDS: ASPIRIN EC 81 MG TABLET PO SCH (21:37)
[2017-03-03] MEDS: ALBUTEROL/IPRATROPIUM 3 ML NEB RESP TX SCH ×4 (00:52→19:48)
[2017-03-03] MEDS: MORPHINE 10 MG/1 ML VIAL IV PRN (04:11)
[2017-03-03 04:37] LABS: Hematocrit 24.4 VOL% (42.0-52.0); Hemoglobin 8.3 GM/DL (14.0-18.0); Immature Granulocytes % 0.5 %; Immature Granulocytes Absolute 0.07 #; Lymphocytes % 7.1 % (21.2-54.2); Mean Corpuscular Hemoglobin 31 PG (27-34); Mean Corpuscular Volume 92.1 FL (87-102); Mean Platelet Volume 10.7 FL (9.6-12.0); Monocytes # 1.7 10*3/uL (0.11-0.8); Monocytes % 11.9 % (1.7-12.7); NRBC # 0.02 10*3/uL; Neutrophils # 11.2 10*3/uL (1.4-7.4); Neutrophils % 80.5 % (38.7-73.9); Platelet Count 118 T/CUMM (130-400); Red Blood Count 2.65 MC/CUMM (3.8-5.5); Red Cell Distribution Width 13.1 % (9.3-17.3); White Blood Count 13.9 T/CUMM (4-12)
[2017-03-03 05:08] LABS: Albumin 2.8 G/DL (3.4-5.0); Bilirubin,Direct 0.2 MG/DL (0.0-0.20); Bilirubin,Total 0.6 MG/DL (0.2-1.0); Calcium 7.4 MG/DL (8.5-10.1); Magnesium 2.6 MG/DL (1.8-2.4); Osmolality,Calculated 287.4 MOS/KG (273-304); Potassium 4.2 MMOL/L (3.5-5.1); Total Protein 4.8 G/DL (6.4-8.3)
[2017-03-03] MEDS: VANCOMYCIN INJ 1,000 MG in SODIUM CHLORIDE 0.9% 250 ML IV SCH (06:07)
[2017-03-03] MEDS ORDERED: FUROSEMIDE 40 MG/4 ML VIAL IV ONE (07:53)
[2017-03-03] MEDS ORDERED: POTASSIUM CHLORIDE 20 MEQ TABLET PO PRN (08:53)
[2017-03-03] MEDS ORDERED: MAGNESIUM SULF RIDER 4 GM in PREMIX 1 EACH IV PRN (08:53)
[2017-03-03] MEDS ORDERED: DEXTROSE 50% 25 GM/50 ML VIAL IV PRN ×2 (08:53)
[2017-03-03] MEDS ORDERED: ONDANSETRON 4 MG/2 ML VIAL IV PRN (08:53)
[2017-03-03] MEDS ORDERED: GLUCAGON 1 MG VIAL IM PRN ×2 (08:53)
[2017-03-03] MEDS ORDERED: MAGNESIUM SULF RIDER 2 GM in PREMIX 1 EACH IV PRN (08:53)
[2017-03-03] MEDS ORDERED: SODIUM CHLOR 0.45% KCL 20 MEQ 20 MEQ/1,000 ML BAG IV SCH (08:53)
[2017-03-03] MEDS ORDERED: MAGNESIUM HYDROXIDE SUSP 30 ML UDCUP PO PRN (08:53)
[2017-03-03] MEDS ORDERED: ALUMINUM/MAGNES/SIMETH MAX STR 30 ML UDCUP PO PRN (08:53)
[2017-03-03] MEDS ORDERED: ACETAMINOPHEN 325 MG TABLET PO PRN (08:53)
[2017-03-03] MEDS ORDERED: MORPHINE 2 MG/1 ML SYRINGE IV PRN (08:53)
[2017-03-03] MEDS: CHLORHEXIDINE 0.12% ORAL RINSE 60 ML BOTTLE SWISH/SPIT SCH ×2 (09:03→23:01)
[2017-03-03] MEDS: AMIODARONE 200 MG TABLET PO SCH ×2 (09:08→22:57)
[2017-03-03] MEDS: DOCUSATE SODIUM 100 MG CAPSULE PO SCH (09:08)
[2017-03-03] MEDS: METOPROLOL TARTRATE 25 MG TABLET PO SCH ×2 (09:08→23:00)
[2017-03-03] MEDS: FERROUS SULFATE 325 MG TABLET PO SCH (09:08)
[2017-03-03] MEDS: VENLAFAXINE 75 MG TABLET PO SCH ×2 (09:09→22:57)
[2017-03-03] MEDS: PANTOPRAZOLE 40 MG TABLET PO SCH (09:09)
[2017-03-03] MEDS: oxyCODONE/ACETAMINOPHEN 5-325 MG TABLET PO PRN ×2 (09:10→18:50)
[2017-03-03] MEDS: FLUTICASONE 50 MCG NASAL SPRAY 16 GM BOTTLE BOTH NARES SCH ×2 (09:12→22:58)
[2017-03-03] MEDS: ASPIRIN EC 81 MG TABLET PO SCH (22:57)
[2017-03-03] MEDS: PITAVASTATIN 2 MG TABLET PO SCH (22:57)
[2017-03-03] MEDS: MONTELUKAST 10 MG TABLET PO SCH (22:57)
[2017-03-04] MEDS: oxyCODONE/ACETAMINOPHEN 5-325 MG TABLET PO PRN ×2 (00:50→21:48)
[2017-03-04] MEDS: ALBUTEROL/IPRATROPIUM 3 ML NEB RESP TX SCH ×4 (01:31→19:14)
[2017-03-04] MEDS ORDERED: FUROSEMIDE 40 MG/4 ML VIAL IV ONE (06:00)
[2017-03-04 06:13] LABS: Eosinophils # 0.4 10*3/uL (0.0-0.87); Eosinophils % 2.5 % (0.00-10.9); Hematocrit 24.8 VOL% (42.0-52.0); Hemoglobin 8.4 GM/DL (14.0-18.0); Immature Granulocytes % 0.5 %; Immature Granulocytes Absolute 0.07 #; Lymphocytes # 1.5 10*3/uL (1.4-4.0); Lymphocytes % 10.4 % (21.2-54.2); Mean Corpuscular HGB Conc 33.9 GM/DL (32-36); Mean Corpuscular Hemoglobin 32 PG (27-34); Mean Corpuscular Volume 93.2 FL (87-102); Mean Platelet Volume 9.9 FL (9.6-12.0); Monocytes # 1.8 10*3/uL (0.11-0.8); Monocytes % 12.3 % (1.7-12.7); Neutrophils # 10.8 10*3/uL (1.4-7.4); Neutrophils % 74.3 % (38.7-73.9); Platelet Count 179 T/CUMM (130-400); Red Blood Count 2.66 MC/CUMM (3.8-5.5); Red Cell Distribution Width 13.2 % (9.3-17.3); White Blood Count 14.6 T/CUMM (4-12)
[2017-03-04 06:48] LABS: Alanine Aminotransferase 43 U/L (16-61); Albumin 2.7 G/DL (3.4-5.0); Alkaline Phosphatase 45 U/L (45-117); Aspartate Amino Transferase 31 U/L (0-37); Bilirubin,Indirect 0.6 MG/DL (0.0-1.0); Blood Urea Nitrogen 36 MG/DL (7-18); Calcium 7.7 MG/DL (8.5-10.1); Glucose 106 MG/DL (74-106); Magnesium 2.7 MG/DL (1.8-2.4); Osmolality,Calculated 288.3 MOS/KG (273-304); Potassium 3.9 MMOL/L (3.5-5.1); Sodium 141 MMOL/L (136-145); Total Protein 4.9 G/DL (6.4-8.3)
[2017-03-04 06:54] LABS: Troponin I Only 0.538 NG/ML (0.00-0.045)
[2017-03-04] MEDS: METOPROLOL TARTRATE 25 MG TABLET PO SCH ×2 (09:31→21:48)
[2017-03-04] MEDS: FERROUS SULFATE 325 MG TABLET PO SCH (09:31)
[2017-03-04] MEDS: VENLAFAXINE 75 MG TABLET PO SCH ×2 (09:31→21:48)
[2017-03-04] MEDS: FLUTICASONE 50 MCG NASAL SPRAY 16 GM BOTTLE BOTH NARES SCH ×2 (09:31→21:49)
[2017-03-04] MEDS: DOCUSATE SODIUM 100 MG CAPSULE PO SCH ×2 (09:31→21:47)
[2017-03-04] MEDS: AMIODARONE 200 MG TABLET PO SCH ×2 (09:31→21:48)
[2017-03-04] MEDS: PANTOPRAZOLE 40 MG TABLET PO SCH (09:32)
[2017-03-04] MEDS: CHLORHEXIDINE 0.12% ORAL RINSE 60 ML BOTTLE SWISH/SPIT SCH ×2 (09:32→21:49)
[2017-03-04] MEDS ORDERED: SODIUM CHLORIDE 0.45% 1,000 ML IV SCH (15:30)
[2017-03-04] MEDS: ASPIRIN EC 81 MG TABLET PO SCH (21:47)
[2017-03-04] MEDS: PITAVASTATIN 2 MG TABLET PO SCH (21:47)
[2017-03-04] MEDS: MONTELUKAST 10 MG TABLET PO SCH (21:48)
[2017-03-05] MEDS: ALBUTEROL/IPRATROPIUM 3 ML NEB RESP TX SCH ×4 (00:29→18:40)
[2017-03-05 05:48] LABS: Basophils % 0.1 % (0.0-0.8); Eosinophils # 0.4 10*3/uL (0.0-0.87); Eosinophils % 3.7 % (0.00-10.9); Hematocrit 25.1 VOL% (42.0-52.0); Hemoglobin 8.3 GM/DL (14.0-18.0); Immature Granulocytes % 0.9 %; Immature Granulocytes Absolute 0.11 #; Lymphocytes # 1.7 10*3/uL (1.4-4.0); Lymphocytes % 14.6 % (21.2-54.2); Mean Corpuscular HGB Conc 33.1 GM/DL (32-36); Mean Corpuscular Hemoglobin 31 PG (27-34); Mean Platelet Volume 9.6 FL (9.6-12.0); Monocytes # 1.4 10*3/uL (0.11-0.8); Monocytes % 12.2 % (1.7-12.7); Neutrophils # 8.1 10*3/uL (1.4-7.4); Neutrophils % 68.5 % (38.7-73.9); Platelet Count 205 T/CUMM (130-400); Red Blood Count 2.67 MC/CUMM (3.8-5.5); Red Cell Distribution Width 13.1 % (9.3-17.3); White Blood Count 11.8 T/CUMM (4-12)
[2017-03-05 06:29] LABS: Alanine Aminotransferase 51 U/L (16-61); Albumin 2.6 G/DL (3.4-5.0); Alkaline Phosphatase 50 U/L (45-117); Aspartate Amino Transferase 32 U/L (0-37); Bilirubin,Indirect 1.1 MG/DL (0.0-1.0); Blood Urea Nitrogen 35 MG/DL (7-18); Calcium 7.8 MG/DL (8.5-10.1); Glucose 101 MG/DL (74-106); Magnesium 2.6 MG/DL (1.8-2.4); Osmolality,Calculated 288.3 MOS/KG (273-304); Potassium 4.2 MMOL/L (3.5-5.1); Sodium 141 MMOL/L (136-145); Total Protein 4.9 G/DL (6.4-8.3)
[2017-03-05 06:30] LABS: Troponin I Only 0.353 NG/ML (0.00-0.045)
[2017-03-05] MEDS: METOPROLOL TARTRATE 25 MG TABLET PO SCH (08:42)
[2017-03-05] MEDS: FERROUS SULFATE 325 MG TABLET PO SCH (08:43)
[2017-03-05] MEDS: DOCUSATE SODIUM 100 MG CAPSULE PO SCH ×2 (08:43→20:49)
[2017-03-05] MEDS: PANTOPRAZOLE 40 MG TABLET PO SCH (08:43)
[2017-03-05] MEDS: AMIODARONE 200 MG TABLET PO SCH ×2 (08:43→20:49)
[2017-03-05] MEDS: VENLAFAXINE 75 MG TABLET PO SCH ×2 (08:43→20:49)
[2017-03-05] MEDS: CHLORHEXIDINE 0.12% ORAL RINSE 60 ML BOTTLE SWISH/SPIT SCH ×2 (08:46→20:50)
[2017-03-05] MEDS: FLUTICASONE 50 MCG NASAL SPRAY 16 GM BOTTLE BOTH NARES SCH ×2 (08:46→20:50)
[2017-03-05] MEDS: ENOXAPARIN 40 MG/0.4 ML SYRINGE SUBCUT SCH (16:57)
[2017-03-05] MEDS: oxyCODONE/ACETAMINOPHEN 5-325 MG TABLET PO PRN (20:49)
[2017-03-05] MEDS: METOPROLOL SUCCINATE XL 25 MG TABLET PO SCH (20:49)
[2017-03-05] MEDS: ASPIRIN EC 81 MG TABLET PO SCH (20:49)
[2017-03-05] MEDS: MONTELUKAST 10 MG TABLET PO SCH (20:49)
[2017-03-05] MEDS: PITAVASTATIN 2 MG TABLET PO SCH (20:49)
[2017-03-05] MEDS: ZALEPLON 5 MG CAPSULE PO PRN (23:16)
[2017-03-06] MEDS: ALBUTEROL/IPRATROPIUM 3 ML NEB RESP TX SCH ×4 (00:20→19:03)
[2017-03-06 05:43] LABS: Calcium 7.6 MG/DL (8.5-10.1); Magnesium 2.7 MG/DL (1.8-2.4); Osmolality,Calculated 285.4 MOS/KG (273-304); Potassium 4.2 MMOL/L (3.5-5.1)
[2017-03-06] MEDS: VENLAFAXINE 75 MG TABLET PO SCH ×2 (10:35→22:20)
[2017-03-06] MEDS: AMIODARONE 200 MG TABLET PO SCH ×2 (10:35→22:21)
[2017-03-06] MEDS: PANTOPRAZOLE 40 MG TABLET PO SCH (10:35)
[2017-03-06] MEDS: METOPROLOL SUCCINATE XL 25 MG TABLET PO SCH ×2 (10:35→22:21)
[2017-03-06] MEDS: FERROUS SULFATE 325 MG TABLET PO SCH (10:35)
[2017-03-06] MEDS: DOCUSATE SODIUM 100 MG CAPSULE PO SCH ×2 (10:35→22:20)
[2017-03-06] MEDS: FLUTICASONE 50 MCG NASAL SPRAY 16 GM BOTTLE BOTH NARES SCH ×2 (10:36→22:22)
[2017-03-06] MEDS: CHLORHEXIDINE 0.12% ORAL RINSE 60 ML BOTTLE SWISH/SPIT SCH ×2 (10:36→22:22)
[2017-03-06] MEDS: oxyCODONE/ACETAMINOPHEN 5-325 MG TABLET PO PRN (13:03)
[2017-03-06] MEDS: ENOXAPARIN 40 MG/0.4 ML SYRINGE SUBCUT SCH (16:48)
[2017-03-06] MEDS: PITAVASTATIN 2 MG TABLET PO SCH (22:20)
[2017-03-06] MEDS: MONTELUKAST 10 MG TABLET PO SCH (22:20)
[2017-03-06] MEDS: ASPIRIN EC 81 MG TABLET PO SCH (22:21)
[2017-03-06] MEDS: ZALEPLON 5 MG CAPSULE PO PRN (23:57)
[2017-03-07] MEDS: ALBUTEROL/IPRATROPIUM 3 ML NEB RESP TX SCH ×5 (00:04→19:48)
[2017-03-07 05:52] LABS: Basophils % 0.1 % (0.0-0.8); Eosinophils # 0.5 10*3/uL (0.0-0.87); Eosinophils % 4.4 % (0.00-10.9); Hematocrit 24.2 VOL% (42.0-52.0); Immature Granulocytes % 1.9 %; Lymphocytes # 1.1 10*3/uL (1.4-4.0); Lymphocytes % 10.4 % (21.2-54.2); Mean Corpuscular HGB Conc 33.1 GM/DL (32-36); Mean Corpuscular Hemoglobin 31 PG (27-34); Mean Corpuscular Volume 94.9 FL (87-102); Mean Platelet Volume 9.5 FL (9.6-12.0); Monocytes % 9.7 % (1.7-12.7); NRBC # 0.02 10*3/uL; Neutrophils # 7.9 10*3/uL (1.4-7.4); Neutrophils % 73.5 % (38.7-73.9); Platelet Count 313 T/CUMM (130-400); Red Blood Count 2.55 MC/CUMM (3.8-5.5); Red Cell Distribution Width 13.1 % (9.3-17.3); White Blood Count 10.7 T/CUMM (4-12)
[2017-03-07 06:31] LABS: Alanine Aminotransferase 57 U/L (16-61); Albumin 2.3 G/DL (3.4-5.0); Alkaline Phosphatase 57 U/L (45-117); Aspartate Amino Transferase 29 U/L (0-37); Bilirubin,Indirect 0.6 MG/DL (0.0-1.0); Blood Urea Nitrogen 29 MG/DL (7-18); Calcium 7.9 MG/DL (8.5-10.1); Glucose 142 MG/DL (74-106); Magnesium 2.4 MG/DL (1.8-2.4); Osmolality,Calculated 282.7 MOS/KG (273-304); Potassium 4.6 MMOL/L (3.5-5.1); Sodium 138 MMOL/L (136-145); Total Protein 4.8 G/DL (6.4-8.3)
[2017-03-07 06:33] LABS: Troponin I Only 0.129 NG/ML (0.00-0.045)
[2017-03-07] MEDS ORDERED: PROMETHAZINE INJ 12.5 MG in SODIUM CHLORIDE 0.9% 50 ML IV PRN (08:48)
[2017-03-07] MEDS ORDERED: METOCLOPRAMIDE 10 MG/2 ML VIAL IV PRN (08:48)
[2017-03-07] MEDS ORDERED: chlorproMAZINE 25 MG TABLET PO ONE (10:18)
[2017-03-07] MEDS: FLUTICASONE 50 MCG NASAL SPRAY 16 GM BOTTLE BOTH NARES SCH ×2 (10:47→21:07)
[2017-03-07] MEDS: CHLORHEXIDINE 0.12% ORAL RINSE 60 ML BOTTLE SWISH/SPIT SCH ×2 (10:47→21:07)
[2017-03-07] MEDS: DOCUSATE SODIUM 100 MG CAPSULE PO SCH ×2 (10:49→21:07)
[2017-03-07] MEDS: PANTOPRAZOLE 40 MG TABLET PO SCH (10:50)
[2017-03-07] MEDS: FERROUS SULFATE 325 MG TABLET PO SCH (10:50)
[2017-03-07] MEDS: VENLAFAXINE 75 MG TABLET PO SCH ×2 (10:54→21:07)
[2017-03-07] MEDS: chlorproMAZINE 25 MG TABLET PO SCH ×2 (15:07→17:44)
[2017-03-07] MEDS: oxyCODONE/ACETAMINOPHEN 5-325 MG TABLET PO PRN (17:40)
[2017-03-07] MEDS: ENOXAPARIN 40 MG/0.4 ML SYRINGE SUBCUT SCH (17:41)
[2017-03-07] MEDS ORDERED: chlorproMAZINE 25 MG TABLET PO PRN (19:12)
[2017-03-07] MEDS: ASPIRIN EC 81 MG TABLET PO SCH (21:07)
[2017-03-07] MEDS: ZALEPLON 5 MG CAPSULE PO PRN (21:07)
[2017-03-07] MEDS: MONTELUKAST 10 MG TABLET PO SCH (21:07)
[2017-03-07] MEDS: PITAVASTATIN 2 MG TABLET PO SCH (21:07)
[2017-03-07] MEDS: METOPROLOL SUCCINATE XL 50 MG TABLET PO SCH (21:55)
[2017-03-08] MEDS: ALBUTEROL/IPRATROPIUM 3 ML NEB RESP TX SCH ×4 (00:31→20:24)
[2017-03-08 05:41] LABS: Basophils % 0.1 % (0.0-0.8); Eosinophils # 0.4 10*3/uL (0.0-0.87); Eosinophils % 3.7 % (0.00-10.9); Hematocrit 25.2 VOL% (42.0-52.0); Hemoglobin 8.2 GM/DL (14.0-18.0); Immature Granulocytes % 1.4 %; Immature Granulocytes Absolute 0.14 #; Lymphocytes # 1.3 10*3/uL (1.4-4.0); Lymphocytes % 13.1 % (21.2-54.2); Mean Corpuscular HGB Conc 32.5 GM/DL (32-36); Mean Corpuscular Hemoglobin 31 PG (27-34); Mean Corpuscular Volume 95.8 FL (87-102); Monocytes # 1.2 10*3/uL (0.11-0.8); Monocytes % 11.3 % (1.7-12.7); Neutrophils # 7.2 10*3/uL (1.4-7.4); Neutrophils % 70.4 % (38.7-73.9); Platelet Count 312 T/CUMM (130-400); Red Blood Count 2.63 MC/CUMM (3.8-5.5); Red Cell Distribution Width 13.2 % (9.3-17.3); White Blood Count 10.2 T/CUMM (4-12)
[2017-03-08 06:23] LABS: Alanine Aminotransferase 52 U/L (16-61); Albumin 2.4 G/DL (3.4-5.0); Alkaline Phosphatase 59 U/L (45-117); Aspartate Amino Transferase 24 U/L (0-37); Bilirubin,Indirect 0.6 MG/DL (0.0-1.0); Blood Urea Nitrogen 26 MG/DL (7-18); Glucose 116 MG/DL (74-106); Magnesium 2.5 MG/DL (1.8-2.4); Osmolality,Calculated 282.5 MOS/KG (273-304); Potassium 4.8 MMOL/L (3.5-5.1); Sodium 139 MMOL/L (136-145); Total Protein 4.9 G/DL (6.4-8.3)
[2017-03-08 06:24] LABS: Troponin I Only 0.101 NG/ML (0.00-0.045)
[2017-03-08] MEDS: METOPROLOL SUCCINATE XL 50 MG TABLET PO SCH ×2 (09:18→21:15)
[2017-03-08] MEDS: CHLORHEXIDINE 0.12% ORAL RINSE 60 ML BOTTLE SWISH/SPIT SCH ×2 (09:18→21:15)
[2017-03-08] MEDS: VENLAFAXINE 75 MG TABLET PO SCH ×2 (09:18→21:15)
[2017-03-08] MEDS: FERROUS SULFATE 325 MG TABLET PO SCH (09:18)
[2017-03-08] MEDS: DOCUSATE SODIUM 100 MG CAPSULE PO SCH ×2 (09:18→21:15)
[2017-03-08] MEDS: PANTOPRAZOLE 40 MG TABLET PO SCH (09:18)
[2017-03-08] MEDS: FLUTICASONE 50 MCG NASAL SPRAY 16 GM BOTTLE BOTH NARES SCH ×2 (09:19→21:25)
[2017-03-08] MEDS: AMIODARONE 200 MG TABLET PO SCH (10:04)
[2017-03-08] MEDS: METOPROLOL SUCCINATE XL 25 MG TABLET PO SCH (10:04)
[2017-03-08] MEDS: ENOXAPARIN 40 MG/0.4 ML SYRINGE SUBCUT SCH (15:34)
[2017-03-08] MEDS: PITAVASTATIN 2 MG TABLET PO SCH (21:14)
[2017-03-08] MEDS: ASPIRIN EC 81 MG TABLET PO SCH (21:15)
[2017-03-08] MEDS: MONTELUKAST 10 MG TABLET PO SCH (21:15)
[2017-03-09] MEDS: ALBUTEROL/IPRATROPIUM 3 ML NEB RESP TX SCH ×5 (01:50→19:05)
[2017-03-09 05:29] LABS: Basophils % 0.2 % (0.0-0.8); Eosinophils # 0.4 10*3/uL (0.0-0.87); Eosinophils % 3.2 % (0.00-10.9); Hematocrit 23.6 VOL% (42.0-52.0); Hemoglobin 7.8 GM/DL (14.0-18.0); Immature Granulocytes % 1.3 %; Immature Granulocytes Absolute 0.15 #; Lymphocytes % 8.8 % (21.2-54.2); Mean Corpuscular HGB Conc 33.1 GM/DL (32-36); Mean Corpuscular Hemoglobin 32 PG (27-34); Mean Corpuscular Volume 95.9 FL (87-102); Mean Platelet Volume 8.8 FL (9.6-12.0); Monocytes % 8.3 % (1.7-12.7); Neutrophils % 78.2 % (38.7-73.9); Platelet Count 338 T/CUMM (130-400); Red Blood Count 2.46 MC/CUMM (3.8-5.5); Red Cell Distribution Width 13.2 % (9.3-17.3); White Blood Count 11.5 T/CUMM (4-12)
[2017-03-09 05:56] LABS: Calcium 7.8 MG/DL (8.5-10.1); Magnesium 2.4 MG/DL (1.8-2.4); Osmolality,Calculated 279.8 MOS/KG (273-304); Potassium 4.5 MMOL/L (3.5-5.1)
[2017-03-09] MEDS ORDERED: SODIUM CHLORIDE 0.9% 1,000 ML IV PRN (08:49)
[2017-03-09] MEDS: CHLORHEXIDINE 0.12% ORAL RINSE 60 ML BOTTLE SWISH/SPIT SCH ×2 (09:00→20:20)
[2017-03-09] MEDS: METOPROLOL SUCCINATE XL 50 MG TABLET PO SCH ×2 (09:00→20:19)
[2017-03-09] MEDS: DOCUSATE SODIUM 100 MG CAPSULE PO SCH ×2 (09:00→21:02)
[2017-03-09] MEDS: FLUTICASONE 50 MCG NASAL SPRAY 16 GM BOTTLE BOTH NARES SCH ×2 (09:00→21:02)
[2017-03-09] MEDS: PANTOPRAZOLE 40 MG TABLET PO SCH (09:00)
[2017-03-09] MEDS: VENLAFAXINE 75 MG TABLET PO SCH ×2 (09:00→20:18)
[2017-03-09] MEDS: FERROUS SULFATE 325 MG TABLET PO SCH (09:00)
[2017-03-09 18:51] LABS: Hematocrit 32.7 VOL% (42.0-52.0); Hemoglobin 11.2 GM/DL (14.0-18.0)
[2017-03-09] MEDS: PITAVASTATIN 2 MG TABLET PO SCH (20:19)
[2017-03-09] MEDS: ASPIRIN EC 81 MG TABLET PO SCH (20:19)
[2017-03-09] MEDS: MONTELUKAST 10 MG TABLET PO SCH (20:19)
[2017-03-10] MEDS: ALBUTEROL/IPRATROPIUM 3 ML NEB RESP TX SCH ×4 (00:27→19:49)
[2017-03-10 04:47] LABS: Basophils % 0.2 % (0.0-0.8); Eosinophils # 0.2 10*3/uL (0.0-0.87); Eosinophils % 1.4 % (0.00-10.9); Hemoglobin 10.9 GM/DL (14.0-18.0); Immature Granulocytes % 0.8 %; Lymphocytes % 7.7 % (21.2-54.2); Mean Corpuscular HGB Conc 34.1 GM/DL (32-36); Mean Corpuscular Hemoglobin 31 PG (27-34); Mean Corpuscular Volume 89.9 FL (87-102); Mean Platelet Volume 8.8 FL (9.6-12.0); Monocytes # 1.2 10*3/uL (0.11-0.8); Monocytes % 9.2 % (1.7-12.7); Neutrophils # 10.6 10*3/uL (1.4-7.4); Neutrophils % 80.7 % (38.7-73.9); Platelet Count 363 T/CUMM (130-400); Red Blood Count 3.56 MC/CUMM (3.8-5.5); Red Cell Distribution Width 14.6 % (9.3-17.3); White Blood Count 13.1 T/CUMM (4-12)
[2017-03-10 05:14] LABS: Calcium 8.3 MG/DL (8.5-10.1); Magnesium 2.4 MG/DL (1.8-2.4); Osmolality,Calculated 277.7 MOS/KG (273-304); Potassium 4.9 MMOL/L (3.5-5.1)
[2017-03-10] MEDS: DOCUSATE SODIUM 100 MG CAPSULE PO SCH ×2 (09:15→20:40)
[2017-03-10] MEDS: VENLAFAXINE 75 MG TABLET PO SCH ×2 (09:16→20:29)
[2017-03-10] MEDS: METOPROLOL SUCCINATE XL 50 MG TABLET PO SCH ×2 (09:16→20:29)
[2017-03-10] MEDS: FERROUS SULFATE 325 MG TABLET PO SCH (09:16)
[2017-03-10] MEDS: PANTOPRAZOLE 40 MG TABLET PO SCH (09:16)
[2017-03-10] MEDS: CHLORHEXIDINE 0.12% ORAL RINSE 60 ML BOTTLE SWISH/SPIT SCH ×2 (09:17→21:02)
[2017-03-10] MEDS: FLUTICASONE 50 MCG NASAL SPRAY 16 GM BOTTLE BOTH NARES SCH ×2 (09:17→20:40)
[2017-03-10 18:01] LABS: Apearance,Urine CLEAR (Clear); Bacteria,Urine Occasional /HPF (Few); Bilirubin,Urine Negative (Negative); Blood, Urine Negative (Negative); Glucose,Urine (UA) Negative (Negative); Ketones,Urine Negative (Negative); Mucus,Urine Occasional /LPF (Occasional); Nitrite,Urine Negative (Negative); Protein,Urine Negative; RBC,Urine <1 /HPF (0-4); Urine Color Yellow (Yellow); Urine Specific Gravity 1.012 (1.001-1.035); WBC,Urine <1 /HPF (0-6)
[2017-03-10] MEDS: MONTELUKAST 10 MG TABLET PO SCH (20:29)
[2017-03-10] MEDS: PITAVASTATIN 2 MG TABLET PO SCH (20:29)
[2017-03-10] MEDS: ASPIRIN EC 81 MG TABLET PO SCH (20:30)
[2017-03-10] MEDS ORDERED: METOPROLOL SUCCINATE XL 25 MG TABLET PO SCH (21:00)
[2017-03-11] MEDS: ALBUTEROL/IPRATROPIUM 3 ML NEB RESP TX SCH ×2 (00:31→07:26)
[2017-03-11 05:18] LABS: Basophils # 0.1 10*3/uL (0.0-0.2); Basophils % 0.4 % (0.0-0.8); Eosinophils # 0.3 10*3/uL (0.0-0.87); Eosinophils % 2.7 % (0.00-10.9); Hematocrit 33.3 VOL% (42.0-52.0); Hemoglobin 11.3 GM/DL (14.0-18.0); Immature Granulocytes % 0.7 %; Immature Granulocytes Absolute 0.09 #; Mean Corpuscular HGB Conc 33.9 GM/DL (32-36); Mean Corpuscular Hemoglobin 31 PG (27-34); Mean Corpuscular Volume 91.5 FL (87-102); Mean Platelet Volume 8.8 FL (9.6-12.0); Monocytes # 1.5 10*3/uL (0.11-0.8); Monocytes % 11.6 % (1.7-12.7); Neutrophils # 9.7 10*3/uL (1.4-7.4); Neutrophils % 76.6 % (38.7-73.9); Platelet Count 401 T/CUMM (130-400); Red Blood Count 3.64 MC/CUMM (3.8-5.5); Red Cell Distribution Width 14.4 % (9.3-17.3); White Blood Count 12.7 T/CUMM (4-12)
[2017-03-11 05:43] LABS: Calcium 8.2 MG/DL (8.5-10.1); Magnesium 2.3 MG/DL (1.8-2.4); Osmolality,Calculated 278.7 MOS/KG (273-304); Potassium 4.5 MMOL/L (3.5-5.1)
[2017-03-11 05:44] LABS: Calcium 8.5 MG/DL (8.5-10.1); Osmolality,Calculated 278.7 MOS/KG (273-304); Potassium 4.9 MMOL/L (3.5-5.1)
[2017-03-11 08:21] VITALS: BP 122/65
[2017-03-11] MEDS: VENLAFAXINE 75 MG TABLET PO SCH (10:15)
[2017-03-11] MEDS: METOPROLOL SUCCINATE XL 50 MG TABLET PO SCH (10:17)
[2017-03-11] MEDS: PANTOPRAZOLE 40 MG TABLET PO SCH (10:17)
[2017-03-11] MEDS: DOCUSATE SODIUM 100 MG CAPSULE PO SCH ×2 (10:17→10:20)
[2017-03-11] MEDS: FERROUS SULFATE 325 MG TABLET PO SCH (10:18)
[2017-03-11] MEDS: CHLORHEXIDINE 0.12% ORAL RINSE 60 ML BOTTLE SWISH/SPIT SCH (10:18)
[2017-03-11] MEDS: FLUTICASONE 50 MCG NASAL SPRAY 16 GM BOTTLE BOTH NARES SCH (10:18)
== END 2017-03-11 10:52 | disposition home or self-care (01) | DRG 234 ==
LOC: N.ED 04:57 → SUATTDRO 07:01 → N.EDINP 07:01 → N.ICU 09:47 → N.TELEN 15:41 → N.CVR 02-28 10:43 → N.ICU 03-01 17:53 → N.TELES 03-03 15:02
PROVIDERS: ADMIT Internal Medicine; ATTEND Internal Medicine Geriatric Medicine
PROC: CLCCHCL (ICD-10-PCS; 2017-02-26 14:45)

== ENCOUNTER 2018-10-03 15:24 | Inpatient (IN) ==
[2018-10-03] MEDS ORDERED: SODIUM CHLORIDE 0.9% 1,000 ML IV STA (16:12)
[2018-10-03 16:32] LABS: Basophils # 0.1 10*3/uL (0.0-0.2); Basophils % 0.7 % (0.0-0.8); Eosinophils # 0.1 10*3/uL (0.0-0.87); Eosinophils % 1.3 % (0.00-10.9); Hemoglobin 14.7 GM/DL (14.0-18.0); Immature Granulocytes % 0.3 %; Immature Granulocytes Absolute 0.03 #; Lymphocytes # 1.4 10*3/uL (1.4-4.0); Lymphocytes % 15.6 % (21.2-54.2); Mean Corpuscular HGB Conc 34.2 GM/DL (32-36); Mean Corpuscular Volume 88.8 FL (87-102); Monocytes % 8.2 % (1.7-12.7); Neutrophils % 73.9 % (38.7-73.9); Platelet Count 256 T/CUMM (130-400); Red Blood Count 4.84 MC/CUMM (3.8-5.5); Red Cell Distribution Width 11.6 % (9.3-17.3); White Blood Count 8.7 T/CUMM (4-12)
[2018-10-03 16:37] LABS: Apearance,Urine CLEAR (Clear); Bilirubin,Urine Negative (Negative); Blood, Urine Small mg/dL (Negative); Glucose,Urine (UA) >=500 mg/dL (Negative); Ketones,Urine Negative (Negative); Nitrite,Urine Negative (Negative); Protein,Urine Negative; RBC,Urine <1 /HPF (0-4); Urine Color Straw (Yellow); Urine Specific Gravity 1.027 (1.001-1.035); Urine Urobilinogen < 2.0 EU/DL (0.2-1.0); WBC,Urine 1 /HPF (0-6)
[2018-10-03 16:53] LABS: Albumin 4.1 G/DL (3.4-5.0); Bilirubin,Total 0.5 MG/DL (0.2-1.0); Calcium 9.2 MG/DL (8.5-10.1); Osmolality,Calculated 308.7 MOS/KG (273-304); Total Protein 7.3 G/DL (6.4-8.3)
[2018-10-03] MEDS ORDERED: ONDANSETRON 4 MG/2 ML VIAL IV PRN (17:14)
[2018-10-03] MEDS ORDERED: ACETAMINOPHEN 325 MG TABLET PO PRN (17:14)
[2018-10-03] MEDS ORDERED: INSULIN REGULAR 100 UNIT/ML IV ONE ×2 (17:14→17:30)
[2018-10-03] MEDS ORDERED: DEXTROSE 10% 250 ML BAG IV PRN ×2 (17:14)
[2018-10-03] MEDS ORDERED: NITROGLYCERIN SL 0.4 MG TABLET SL PRN (17:22)
[2018-10-03] MEDS ORDERED: ROSUVASTATIN 10 MG TABLET PO SCH (17:30)
[2018-10-03] MEDS ORDERED: GLUCAGON 1 MG VIAL IM PRN (18:00)
[2018-10-03] MEDS ORDERED: DEXTROSE 50% 25 GM/50 ML VIAL IV PRN (18:00)
[2018-10-03] MEDS ORDERED: SODIUM POLYSTYRENE SULFATE 15 GM/60 ML BOTTLE PO STA (18:10)
[2018-10-03] MEDS: SODIUM CHLORIDE 0.45% 1,000 ML IV SCH (20:18)
[2018-10-03] MEDS ORDERED: BISOPROLOL 5 MG TABLET PO SCH (21:00)
[2018-10-03] MEDS ORDERED: INSULIN GLARGINE 100 UNIT/ML SUBCUT SCH (21:00)
[2018-10-03] MEDS ORDERED: LISINOPRIL 2.5 MG TABLET PO SCH (21:00)
[2018-10-03] MEDS ORDERED: ASPIRIN EC 81 MG TABLET PO SCH (21:00)
[2018-10-03] MEDS: INSULIN LISPRO 100 UNIT/ML SUBCUT SCH (22:06)
[2018-10-04] MEDS: SODIUM CHLORIDE 0.45% 1,000 ML IV SCH ×2 (04:27→11:17)
[2018-10-04 04:59] LABS: Basophils # 0.1 10*3/uL (0.0-0.2); Basophils % 0.6 % (0.0-0.8); Eosinophils # 0.2 10*3/uL (0.0-0.87); Hematocrit 38.4 VOL% (42.0-52.0); Hemoglobin 13.1 GM/DL (14.0-18.0); Immature Granulocytes % 0.3 %; Immature Granulocytes Absolute 0.02 #; Lymphocytes # 2.3 10*3/uL (1.4-4.0); Lymphocytes % 29.5 % (21.2-54.2); Mean Corpuscular HGB Conc 34.1 GM/DL (32-36); Mean Corpuscular Volume 89.7 FL (87-102); Mean Platelet Volume 10.9 FL (9.6-12.0); Monocytes % 11.3 % (1.7-12.7); Neutrophils % 55.3 % (38.7-73.9); Platelet Count 213 T/CUMM (130-400); Red Blood Count 4.28 MC/CUMM (3.8-5.5); Red Cell Distribution Width 11.7 % (9.3-17.3); White Blood Count 7.8 T/CUMM (4-12)
[2018-10-04 05:32] LABS: Calcium 8.6 MG/DL (8.5-10.1); Osmolality,Calculated 291.3 MOS/KG (273-304); Risk Ratio 5.58; Thyroid Stimulating Hormone 2.24 uIU/ml (0.358-3.74); VLDL CHOLESTEROL 36.6 MG/DL
[2018-10-04 08:16] VITALS: BP 124/62
[2018-10-04] MEDS ORDERED: metFORMIN 500 MG TABLET PO SCH (08:32)
[2018-10-04] MEDS ORDERED: PANTOPRAZOLE 40 MG TABLET PO SCH (09:00)
[2018-10-04] MEDS ORDERED: ENOXAPARIN 40 MG/0.4 ML SYRINGE SUBCUT SCH (09:00)
[2018-10-04] MEDS: INSULIN LISPRO 100 UNIT/ML SUBCUT SCH (09:32)
[2018-10-05] MEDS ORDERED: MONTELUKAST 10 MG TABLET PO SCH (09:00)
== END 2018-10-04 11:57 | disposition home or self-care (01) | DRG 638 ==
LOC: N.ED 15:24 → N.2E 17:13
PROVIDERS: ADMIT Internal Medicine; ATTEND Internal Medicine

== ENCOUNTER 2018-12-11 07:31 | Inpatient (IN) ==
[2018-12-09 16:21] LABS: Basophils % 0.4 % (0.0-0.8); Eosinophils # 0.1 10*3/uL (0.0-0.87); Eosinophils % 1.1 % (0.00-10.9); Hematocrit 40.7 VOL% (42.0-52.0); Hemoglobin 13.6 GM/DL (14.0-18.0); Immature Granulocytes % 0.3 %; Immature Granulocytes Absolute 0.03 #; Lymphocytes # 1.6 10*3/uL (1.4-4.0); Lymphocytes % 16.6 % (21.2-54.2); Mean Corpuscular HGB Conc 33.4 GM/DL (32-36); Mean Corpuscular Volume 92.9 FL (87-102); Mean Platelet Volume 9.8 FL (9.6-12.0); Monocytes % 9.7 % (1.7-12.7); Neutrophils % 71.9 % (38.7-73.9); Platelet Count 279 T/CUMM (130-400); Red Blood Count 4.38 MC/CUMM (3.8-5.5); Red Cell Distribution Width 12.5 % (9.3-17.3); White Blood Count 9.8 T/CUMM (4-12)
[~2018-12-11 07:31] MED LIST: VANCOMYCIN INJ 1,000 MG in SODIUM CHLORIDE 0.9% 250 ML IV ONE
[2018-12-11] MEDS ORDERED: BUPIVACAINE MPF 0.25% 30 ML VIAL ONE (08:14)
[2018-12-11] MEDS ORDERED: LIDOCAINE MPF 1% /EPI 30 ML VIAL ONE (08:15)
[2018-12-11] MEDS: LACTATED RINGERS 1,000 ML IV SCH ×2 (08:21→10:35)
[2018-12-11 08:24] LABS: Calcium 9.2 MG/DL (8.5-10.1); Osmolality,Calculated 290.1 MOS/KG (273-304)
[2018-12-11] MEDS ORDERED: VANCOMYCIN 1,000 MG VIAL ONE (08:29)
[2018-12-11] MEDS ORDERED: ceFAZolin 1,000 MG VIAL ONE (09:00)
[2018-12-11] MEDS ORDERED: ONDANSETRON 4 MG/2 ML VIAL IV PRN ×2 (10:11→11:00)
[2018-12-11] MEDS ORDERED: MORPHINE 4 MG/1 ML VIAL IV PRN (10:11)
[2018-12-11] MEDS ORDERED: NITROGLYCERIN SL 0.4 MG TABLET SL PRN (10:14)
[2018-12-11] MEDS ORDERED: DEXTROSE 10% 25 GM/250 ML BAG IV PRN ×2 (10:15)
[2018-12-11] MEDS ORDERED: GLUCAGON 1 MG VIAL IM PRN ×2 (10:15)
[2018-12-11] MEDS ORDERED: PROPOFOL 200 MG/20 ML VIAL IV ONE (10:21)
[2018-12-11] MEDS ORDERED: fentaNYL 100 MCG/2 ML VIAL ONE (10:21)
[2018-12-11] MEDS ORDERED: GLYCOPYRROLATE 0.4 MG/2 ML VIAL ONE (10:21)
[2018-12-11] MEDS ORDERED: SEVOFLURANE 1 UNIT/15 MINUTE INH ONE (10:21)
[2018-12-11] MEDS ORDERED: PHENYLEPHRINE 1 MG/10 ML SYRINGE IV ONE (10:22)
[2018-12-11] MEDS ORDERED: NEOSTIGMINE 10 MG/10 ML VIAL ONE (10:22)
[2018-12-11] MEDS ORDERED: ROCURONIUM 100 MG/10 ML VIAL IV ONE (10:22)
[2018-12-11] MEDS ORDERED: LACTATED RINGERS 1,000 ML IV ONE (10:22)
[2018-12-11] MEDS ORDERED: ONDANSETRON 4 MG/2 ML VIAL ONE (10:56)
[2018-12-11] MEDS ORDERED: HYDROmorphone 2 MG/1 ML VIAL ONE (10:56)
[2018-12-11] MEDS ORDERED: HYDROmorphone 2 MG/1 ML VIAL IV PRN (11:00)
[2018-12-11] MEDS: INSULIN REGULAR 100 UNIT/ML SUBCUT SCH ×3 (13:19→20:44)
[2018-12-11 14:07] LABS: Troponin I < 0.015 NG/ML (0.00-0.045)
[2018-12-11] MEDS: NYSTATIN 500,000 UNIT/5 ML UDCUP SWISH/SWAL SCH ×2 (16:23→20:44)
[2018-12-11] MEDS ORDERED: PHENOL 1.4% THROAT SPRAY 177 ML BOTTLE PO PRN (16:31)
[2018-12-11] MEDS: metFORMIN 500 MG TABLET PO SCH (18:46)
[2018-12-11] MEDS: BISOPROLOL 5 MG TABLET PO SCH ×2 (20:44→20:50)
[2018-12-11] MEDS ORDERED: LISINOPRIL 2.5 MG TABLET PO SCH (21:00)
[2018-12-11] MEDS ORDERED: ASPIRIN EC 81 MG TABLET PO SCH (21:00)
[2018-12-12] MEDS ORDERED: ENOXAPARIN 40 MG/0.4 ML SYRINGE SUBCUT SCH (04:13)
[2018-12-12 07:50] VITALS: BP 105/54
[2018-12-12] MEDS: NYSTATIN 500,000 UNIT/5 ML UDCUP SWISH/SWAL SCH (08:00)
[2018-12-12] MEDS: metFORMIN 500 MG TABLET PO SCH (08:00)
[2018-12-12] MEDS: INSULIN REGULAR 100 UNIT/ML SUBCUT SCH (08:30)
[2018-12-12] MEDS ORDERED: ROSUVASTATIN 10 MG TABLET PO SCH (09:00)
[2018-12-12] MEDS ORDERED: SERTRALINE 25 MG TABLET PO SCH (09:00)
[2018-12-12] MEDS ORDERED: PANTOPRAZOLE 40 MG TABLET PO SCH (21:00)
[2018-12-13] MEDS ORDERED: MONTELUKAST 10 MG TABLET PO SCH (09:00)
== END 2018-12-12 10:22 | disposition home or self-care (01) | DRG 355 ==
LOC: N.OR 07:31 → N.SDSINP 07:32 → N.3E 11:24
PROVIDERS: ADMIT Surgery; ATTEND Surgery

== ENCOUNTER 2020-02-12 03:00 | Inpatient (IN) ==
[2020-02-12] MEDS ORDERED: ONDANSETRON 4 MG/2 ML VIAL IV STA (03:18)
[2020-02-12] MEDS ORDERED: SODIUM CHLORIDE 0.9% 1,000 ML IV STA (03:18)
[2020-02-12] MEDS ORDERED: HYDROmorphone 2 MG/1 ML VIAL IV STA (03:18)
[2020-02-12 04:05] LABS: Basophils # 0.1 10*3/uL (0.0-0.2); Basophils % 1.5 % (0.0-0.8); Hematocrit 42.7 VOL% (42.0-52.0); Immature Granulocytes % 4.3 %; Lymphocytes # 0.4 10*3/uL (1.4-4.0); Lymphocytes % 7.7 % (21.2-54.2); Mean Corpuscular HGB Conc 35.1 GM/DL (32-36); Mean Corpuscular Volume 87.7 FL (87-102); Mean Platelet Volume 9.3 FL (9.6-12.0); Monocytes % 19.6 % (1.7-12.7); Neutrophils % 66.9 % (38.7-73.9); Platelet Count 267 T/CUMM (130-400); Red Blood Count 4.87 MC/CUMM (3.8-5.5); White Blood Count 4.7 T/CUMM (4-12)
[2020-02-12 04:27] LABS: Alanine Aminotransferase 37 U/L (16-61); Albumin 2.8 G/DL (3.4-5.0); Alkaline Phosphatase 84 U/L (45-117); Amylase 42 U/L (25-115); Aspartate Amino Transferase 19 U/L (0-37); Blood Urea Nitrogen 25 MG/DL (7-18); Calcium 9.4 MG/DL (8.5-10.1); Estimated Glom Filtration Rate 39 ML/MIN; Glucose 168 MG/DL (74-106); Osmolality,Calculated 271.5 MOS/KG (273-304); Total Protein 7.4 G/DL (6.4-8.3)
[2020-02-12 04:36] LABS: Band Neutrophils 8 % (0-10); Lymphocytes 11 % (20-55); Platelet Estimate Adequate; Segmented Neutrophils 62 % (50-85); Total Cells Counted 100
[2020-02-12] MEDS ORDERED: PROMETHAZINE 25 MG/1 ML VIAL ONE (04:46)
[2020-02-12] MEDS ORDERED: PROMETHAZINE 25 MG/1 ML VIAL IM STA (04:46)
[2020-02-12] MEDS ORDERED: PROMETHAZINE 25 MG/1 ML VIAL IM PRN (05:48)
[2020-02-12] MEDS ORDERED: ALUMINUM/MAGNES/SIMETH MAX STR 30 ML UDCUP PO PRN (05:48)
[2020-02-12] MEDS ORDERED: GLUCAGON 1 MG VIAL IM PRN (05:48)
[2020-02-12] MEDS ORDERED: ACETAMINOPHEN 325 MG TABLET PO PRN (05:48)
[2020-02-12] MEDS ORDERED: DEXTROSE 50% 25 GM/50 ML VIAL IV PRN (05:48)
[2020-02-12] MEDS ORDERED: hydrALAZINE 20 MG/1 ML VIAL IV PRN (05:48)
[2020-02-12] MEDS ORDERED: guaiFENesin/DM ER 600-30 MG TABLET PO PRN (05:48)
[2020-02-12] MEDS ORDERED: MORPHINE 4 MG/1 ML VIAL IV PRN (05:48)
[2020-02-12 06:35] LABS: Bilirubin,Urine Negative (Negative); Blood, Urine Small mg/dL (Negative); Glucose,Urine (UA) Negative (Negative); Ketones,Urine 5 mg/dL (Negative); Mucus,Urine Occasional /LPF (Occasional); Nitrite,Urine Negative (Negative); Protein,Urine 100 MG/DL; RBC,Urine 2 /HPF (0-4); Squamous Epithelial Cell,Urine Occasional /HPF (0-10); Urine Appearance CLEAR (Clear); Urine Color Amber (Yellow); Urine Specific Gravity 1.035 (1.001-1.035); Urine Urobilinogen < 2.0 EU/DL (0.2-1.0); WBC,Urine <1 /HPF (0-6)
[2020-02-12] MEDS: SODIUM CHLORIDE 0.9% 1,000 ML IV SCH ×2 (06:50→17:53)
[2020-02-12] MEDS ORDERED: VANCOMYCIN INJ 1,000 MG in SODIUM CHLORIDE 0.9% 250 ML IV SCH (07:30)
[2020-02-12] MEDS ORDERED: VANCOMYCIN INJ 1,250 MG in SODIUM CHLORIDE 0.9% 250 ML IV ONE (08:00)
[2020-02-12] MEDS: MEROPENEM 1,000 MG in SODIUM CHLORIDE 0.9% 100 ML IV SCH ×2 (08:33→20:15)
[2020-02-12] MEDS: INSULIN REGULAR 100 UNIT/ML SUBCUT SCH ×4 (08:38→20:17)
[2020-02-12] MEDS: HYDROmorphone 2 MG/1 ML VIAL IV PRN ×2 (10:57→16:41)
[2020-02-12] MEDS: DIPHENOXYLATE/ATROPINE 2.5-0.025 MG TABLET PO PRN ×3 (13:50→20:14)
[2020-02-12] MEDS: diphenhydrAMINE CAP 25 MG CAPSULE PO PRN (20:15)
[2020-02-13] MEDS: SODIUM CHLORIDE 0.9% 1,000 ML IV SCH ×2 (01:53→08:05)
[2020-02-13] MEDS: ONDANSETRON 4 MG/2 ML VIAL IV PRN ×3 (02:16→17:05)
[2020-02-13] MEDS: DIPHENOXYLATE/ATROPINE 2.5-0.025 MG TABLET PO PRN ×2 (02:17→08:13)
[2020-02-13] MEDS: HYDROmorphone 2 MG/1 ML VIAL IV PRN ×3 (03:15→21:24)
[2020-02-13 06:36] LABS: Calcium 8.4 MG/DL (8.5-10.1); Osmolality,Calculated 280.8 MOS/KG (273-304)
[2020-02-13] MEDS: INSULIN REGULAR 100 UNIT/ML SUBCUT SCH ×3 (08:05→17:07)
[2020-02-13] MEDS ORDERED: VANCOMYCIN INJ 1,000 MG in SODIUM CHLORIDE 0.9% 250 ML IV SCH (09:00)
[2020-02-13] MEDS ORDERED: PROMETHAZINE 25 MG/1 ML VIAL IV PRN (09:15)
[2020-02-13] MEDS: MEROPENEM 1,000 MG in SODIUM CHLORIDE 0.9% 100 ML IV SCH (09:26)
[2020-02-13] MEDS: fentaNYL 12 MCG/HR PATCH TRANSDERM SCH (09:27)
[2020-02-13] MEDS ORDERED: CHOLESTYRAMINE 4 GM PACK PO PRN (11:29)
[2020-02-13] MEDS: DEXTROSE 5% NACL 0.9% 1,000 ML IV SCH ×2 (11:33→21:24)
[2020-02-13] MEDS: PROMETHAZINE INJ 25 MG in SODIUM CHLORIDE 0.9% 50 ML IV PRN (17:48)
[2020-02-13] MEDS: DIPHENOXYLATE/ATROPINE 2.5-0.025 MG TABLET PO SCH (21:23)
[2020-02-13] MEDS: diphenhydrAMINE CAP 25 MG CAPSULE PO PRN (21:23)
[2020-02-14] MEDS: INSULIN REGULAR 100 UNIT/ML SUBCUT SCH ×5 (01:38→20:38)
[2020-02-14] MEDS: DEXTROSE 5% NACL 0.9% 1,000 ML IV SCH (05:14)
[2020-02-14] MEDS: DIPHENOXYLATE/ATROPINE 2.5-0.025 MG TABLET PO PRN (05:15)
[2020-02-14 05:55] LABS: Basophils # 0.1 10*3/uL (0.0-0.2); Basophils % 0.7 % (0.0-0.8); Eosinophils % 0.1 % (0.00-10.9); Hematocrit 34.7 VOL% (42.0-52.0); Immature Granulocytes % 3.4 %; Immature Granulocytes Absolute 0.26 #; Lymphocytes # 1.2 10*3/uL (1.4-4.0); Lymphocytes % 15.4 % (21.2-54.2); Mean Corpuscular HGB Conc 34.6 GM/DL (32-36); Mean Corpuscular Volume 90.4 FL (87-102); Mean Platelet Volume 9.3 FL (9.6-12.0); Monocytes % 22.7 % (1.7-12.7); Neutrophils % 57.7 % (38.7-73.9); Platelet Count 304 T/CUMM (130-400); Red Cell Distribution Width 12.8 % (9.3-17.3)
[2020-02-14 06:01] LABS: Red Blood Count 3.84 MC/CUMM (3.8-5.5); White Blood Count 7.7 T/CUMM (4-12)
[2020-02-14 06:10] LABS: Alanine Aminotransferase 29 U/L (16-61); Albumin 2.2 G/DL (3.4-5.0); Alkaline Phosphatase 69 U/L (45-117); Aspartate Amino Transferase 30 U/L (0-37); Bilirubin,Total < 0.39 MG/DL (0.2-1.0); Blood Urea Nitrogen 24 MG/DL (7-18); Calcium 8.5 MG/DL (8.5-10.1); Estimated Glom Filtration Rate 46 ML/MIN; Glucose 142 MG/DL (74-106); Osmolality,Calculated 284.4 MOS/KG (273-304); Total Protein 5.8 G/DL (6.4-8.3)
[2020-02-14 06:22] LABS: Band Neutrophils 3 % (0-10); Lymphocytes 17 % (20-55); Segmented Neutrophils 63 % (50-85); Total Cells Counted 100
[2020-02-14 06:23] LABS: Hypochromasia Slight; Platelet Estimate Normal
[2020-02-14] MEDS ORDERED: POTASSIUM CHLORIDE RIDER 20 MEQ in PREMIX 1 EACH IV PRN (07:13)
[2020-02-14] MEDS: ONDANSETRON 4 MG/2 ML VIAL IV PRN (08:27)
[2020-02-14] MEDS: DIPHENOXYLATE/ATROPINE 2.5-0.025 MG TABLET PO SCH ×2 (08:33→20:35)
[2020-02-14] MEDS: CHOLESTYRAMINE 4 GM PACK PO SCH ×2 (08:48→15:56)
[2020-02-14] MEDS ORDERED: CHOLESTYRAMINE 4 GM PACK PO SCH (09:00)
[2020-02-14] MEDS ORDERED: POTASSIUM CHLORIDE 20 MEQ TABLET PO ONE (10:00)
[2020-02-14] MEDS: LACTOBACILLUS ACIDOPHILUS/BULGARICUS CAPLET PO SCH (10:24)
[2020-02-14] MEDS: PSYLLIUM POWDER 3.7 GM/PACK PO SCH ×2 (10:24→21:56)
[2020-02-14] MEDS: POTASSIUM CHLORIDE INJ 20 MEQ in LACTATED RINGERS 1,000 ML IV SCH ×2 (10:33→20:38)
[2020-02-14] MEDS: PROMETHAZINE INJ 25 MG in SODIUM CHLORIDE 0.9% 50 ML IV PRN (12:44)
[2020-02-14] MEDS: HYDROmorphone 2 MG/1 ML VIAL IV PRN (18:33)
[2020-02-14] MEDS: diphenhydrAMINE CAP 25 MG CAPSULE PO PRN (20:35)
[2020-02-15] MEDS: DIPHENOXYLATE/ATROPINE 2.5-0.025 MG TABLET PO PRN (02:12)
[2020-02-15] MEDS: POTASSIUM CHLORIDE INJ 20 MEQ in LACTATED RINGERS 1,000 ML IV SCH ×3 (04:38→21:22)
[2020-02-15 07:22] LABS: Basophils # 0.1 10*3/uL (0.0-0.2); Basophils % 0.5 % (0.0-0.8); Eosinophils % 0.2 % (0.00-10.9); Hematocrit 33.3 VOL% (42.0-52.0); Hemoglobin 11.3 GM/DL (14.0-18.0); Immature Granulocytes Absolute 0.29 #; Lymphocytes # 1.2 10*3/uL (1.4-4.0); Lymphocytes % 11.9 % (21.2-54.2); Mean Corpuscular HGB Conc 33.9 GM/DL (32-36); Mean Platelet Volume 9.5 FL (9.6-12.0); Monocytes % 12.8 % (1.7-12.7); Neutrophils % 71.6 % (38.7-73.9); Platelet Count 309 T/CUMM (130-400); Red Blood Count 3.66 MC/CUMM (3.8-5.5); Red Cell Distribution Width 13.2 % (9.3-17.3); White Blood Count 9.7 T/CUMM (4-12)
[2020-02-15 07:43] LABS: Band Neutrophils 1 % (0-10); Hypochromasia 1+; Lymphocytes 8 % (20-55); Ovalocytes Slight; Platelet Estimate Adequate; Segmented Neutrophils 82 % (50-85); Total Cells Counted 100
[2020-02-15 08:12] LABS: Calcium 8.3 MG/DL (8.5-10.1); Osmolality,Calculated 279.5 MOS/KG (273-304)
[2020-02-15] MEDS ORDERED: PALONOSETRON 0.25 MG/5 ML VIAL IV ONE (08:15)
[2020-02-15] MEDS: INSULIN REGULAR 100 UNIT/ML SUBCUT SCH ×3 (08:27→17:25)
[2020-02-15] MEDS: PSYLLIUM POWDER 3.7 GM/PACK PO SCH ×2 (09:13→09:21)
[2020-02-15] MEDS: LACTOBACILLUS ACIDOPHILUS/BULGARICUS CAPLET PO SCH (09:22)
[2020-02-15] MEDS: DIPHENOXYLATE/ATROPINE 2.5-0.025 MG TABLET PO SCH (09:22)
[2020-02-15] MEDS: ONDANSETRON 4 MG/2 ML VIAL IV PRN (14:06)
[2020-02-15] MEDS: PROMETHAZINE INJ 25 MG in SODIUM CHLORIDE 0.9% 50 ML IV PRN (16:44)
[2020-02-15] MEDS: VANCOMYCIN 50 MG/ML 60 ML/BOTTLE PO SCH (18:22)
[2020-02-15] MEDS: HYDROmorphone 2 MG/1 ML VIAL IV PRN (21:54)
[2020-02-16] MEDS: VANCOMYCIN 50 MG/ML 60 ML/BOTTLE PO SCH ×5 (01:03→17:00)
[2020-02-16] MEDS: INSULIN REGULAR 100 UNIT/ML SUBCUT SCH ×4 (05:00→22:27)
[2020-02-16 05:18] LABS: Basophils # 0.1 10*3/uL (0.0-0.2); Basophils % 0.5 % (0.0-0.8); Eosinophils % 0.2 % (0.00-10.9); Hematocrit 31.7 VOL% (42.0-52.0); Hemoglobin 10.9 GM/DL (14.0-18.0); Immature Granulocytes % 3.9 %; Immature Granulocytes Absolute 0.57 #; Lymphocytes # 1.7 10*3/uL (1.4-4.0); Lymphocytes % 11.5 % (21.2-54.2); Mean Corpuscular HGB Conc 34.4 GM/DL (32-36); Mean Corpuscular Volume 88.5 FL (87-102); Monocytes % 8.7 % (1.7-12.7); Neutrophils % 75.2 % (38.7-73.9); Platelet Count 332 T/CUMM (130-400); Red Blood Count 3.58 MC/CUMM (3.8-5.5); White Blood Count 14.8 T/CUMM (4-12)
[2020-02-16 05:41] LABS: Albumin 2.1 G/DL (3.4-5.0); Bilirubin,Total 0.5 MG/DL (0.2-1.0); Calcium 8.4 MG/DL (8.5-10.1); Hypochromasia 1+; Lymphocytes 12 % (20-55); Microcytosis 1+; Ovalocytes Slight; Platelet Estimate Adequate; Segmented Neutrophils 83 % (50-85); Total Cells Counted 100; Total Protein 5.2 G/DL (6.4-8.3)
[2020-02-16] MEDS: ONDANSETRON 4 MG/2 ML VIAL IV PRN (06:15)
[2020-02-16] MEDS: POTASSIUM CHLORIDE INJ 20 MEQ in LACTATED RINGERS 1,000 ML IV SCH ×5 (07:35→23:01)
[2020-02-16] MEDS: LACTOBACILLUS ACIDOPHILUS/BULGARICUS CAPLET PO SCH (08:15)
[2020-02-16] MEDS: fentaNYL 12 MCG/HR PATCH TRANSDERM SCH (08:16)
[2020-02-16] MEDS: HYDROmorphone 2 MG/1 ML VIAL IV PRN ×2 (14:33→20:56)
[2020-02-16] MEDS ORDERED: INSULIN REGULAR 100 UNIT/ML SUBCUT SCH (16:30)
[2020-02-16] MEDS: PROMETHAZINE INJ 25 MG in SODIUM CHLORIDE 0.9% 50 ML IV PRN (20:56)
[2020-02-17] MEDS: VANCOMYCIN 50 MG/ML 60 ML/BOTTLE PO SCH ×5 (00:11→23:32)
[2020-02-17 06:15] LABS: Basophils % 0.3 % (0.0-0.8); Eosinophils # 0.1 10*3/uL (0.0-0.87); Eosinophils % 0.5 % (0.00-10.9); Hematocrit 26.3 VOL% (42.0-52.0); Hemoglobin 9.3 GM/DL (14.0-18.0); Immature Granulocytes % 3.8 %; Immature Granulocytes Absolute 0.48 #; Lymphocytes # 1.4 10*3/uL (1.4-4.0); Lymphocytes % 11.4 % (21.2-54.2); Mean Corpuscular HGB Conc 35.4 GM/DL (32-36); Mean Platelet Volume 8.8 FL (9.6-12.0); Platelet Count 239 T/CUMM (130-400); Red Blood Count 2.99 MC/CUMM (3.8-5.5); Red Cell Distribution Width 13.2 % (9.3-17.3); White Blood Count 12.7 T/CUMM (4-12)
[2020-02-17 06:33] LABS: Alanine Aminotransferase 62 U/L (16-61); Albumin 1.9 G/DL (3.4-5.0); Alkaline Phosphatase 80 U/L (45-117); Aspartate Amino Transferase 44 U/L (0-37); Bilirubin,Total < 0.39 MG/DL (0.2-1.0); Blood Urea Nitrogen 12 MG/DL (7-18); Estimated Glom Filtration Rate 60 ML/MIN; Glucose 114 MG/DL (74-106); Osmolality,Calculated 283.1 MOS/KG (273-304); Total Protein 4.6 G/DL (6.4-8.3)
[2020-02-17] MEDS: ONDANSETRON 4 MG/2 ML VIAL IV PRN (08:36)
[2020-02-17] MEDS: LACTOBACILLUS ACIDOPHILUS/BULGARICUS CAPLET PO SCH (08:36)
[2020-02-17] MEDS: POTASSIUM CHLORIDE INJ 20 MEQ in LACTATED RINGERS 1,000 ML IV SCH ×2 (08:38→17:55)
[2020-02-17] MEDS: INSULIN REGULAR 100 UNIT/ML SUBCUT SCH ×2 (08:42→21:13)
[2020-02-17] MEDS ORDERED: ONDANSETRON 4 MG/2 ML VIAL IV PRN (09:19)
[2020-02-17] MEDS: HYDROmorphone 2 MG/1 ML VIAL IV PRN ×2 (14:22→21:10)
[2020-02-18 05:47] LABS: Basophils % 0.4 % (0.0-0.8); Eosinophils % 0.4 % (0.00-10.9); Hematocrit 24.9 VOL% (42.0-52.0); Hemoglobin 8.8 GM/DL (14.0-18.0); Immature Granulocytes % 2.5 %; Immature Granulocytes Absolute 0.28 #; Lymphocytes # 1.2 10*3/uL (1.4-4.0); Lymphocytes % 10.9 % (21.2-54.2); Mean Corpuscular HGB Conc 35.3 GM/DL (32-36); Mean Corpuscular Volume 88.9 FL (87-102); Mean Platelet Volume 9.3 FL (9.6-12.0); Neutrophils % 78.8 % (38.7-73.9); Platelet Count 238 T/CUMM (130-400); Red Cell Distribution Width 13.1 % (9.3-17.3); White Blood Count 11.3 T/CUMM (4-12)
[2020-02-18] MEDS: VANCOMYCIN 50 MG/ML 60 ML/BOTTLE PO SCH ×3 (06:01→18:18)
[2020-02-18 06:07] LABS: Albumin 1.8 G/DL (3.4-5.0); Bilirubin,Total 0.6 MG/DL (0.2-1.0); Calcium 7.7 MG/DL (8.5-10.1); Osmolality,Calculated 278.4 MOS/KG (273-304); Total Protein 4.3 G/DL (6.4-8.3)
[2020-02-18] MEDS ORDERED: DIPHENOXYLATE/ATROPINE 2.5-0.025 MG TABLET PO PRN (09:16)
[2020-02-18] MEDS: LACTOBACILLUS ACIDOPHILUS/BULGARICUS CAPLET PO SCH (10:08)
[2020-02-18] MEDS: POTASSIUM CHLORIDE INJ 20 MEQ in LACTATED RINGERS 1,000 ML IV SCH ×2 (10:08)
[2020-02-18] MEDS ORDERED: OCTREOTIDE 100 MCG/ML SYRINGE SUBCUT ONE (11:02)
[2020-02-18] MEDS: INSULIN REGULAR 100 UNIT/ML SUBCUT SCH ×2 (12:24→21:09)
[2020-02-18] MEDS: HYDROmorphone 2 MG/1 ML VIAL IV PRN ×2 (13:05→21:12)
[2020-02-18] MEDS ORDERED: TEMAZEPAM 7.5 MG CAPSULE PO PRN (19:12)
[2020-02-18] MEDS: OCTREOTIDE 100 MCG/ML SYRINGE SUBCUT SCH (21:11)
[2020-02-19] MEDS: VANCOMYCIN 50 MG/ML 60 ML/BOTTLE PO SCH ×3 (00:43→13:13)
[2020-02-19] MEDS: POTASSIUM CHLORIDE INJ 20 MEQ in LACTATED RINGERS 1,000 ML IV SCH ×2 (04:54→13:12)
[2020-02-19] MEDS: fentaNYL 12 MCG/HR PATCH TRANSDERM SCH (10:43)
[2020-02-19] MEDS: LACTOBACILLUS ACIDOPHILUS/BULGARICUS CAPLET PO SCH (10:43)
[2020-02-19] MEDS: INSULIN REGULAR 100 UNIT/ML SUBCUT SCH (10:49)
[2020-02-19] MEDS: OCTREOTIDE 100 MCG/ML SYRINGE SUBCUT SCH (10:50)
[2020-02-19 12:34] VITALS: BP 136/52
[2020-02-19] MEDS ORDERED: HEPARIN LOCK FLUSH 500 UNIT/5 ML SYRINGE IV ONE (12:44)
== END 2020-02-19 13:07 | disposition home or self-care (01) | DRG 372 ==
LOC: SUATTDRO → EDBD → EDUNIT# → N.EDINP 03:00 → N.ED 03:00 → N.4E 07:36 → SUATTDRO 02-13 15:37 → N.4E 02-15 09:00
PROVIDERS: ADMIT Internal Medicine; ATTEND Internal Medicine